=== PATIENT | male | born 1985 | race Two or more races ===

== ENCOUNTER 2025-03-14 20:19 | Inpatient (IN) | payer MEDICAID, OTHER ==
[~2025-03-14] VITALS: Ht 177.8 cm; Wt 146.8 kg
--- NOTE | 2025-03-14 21:46 | ED.PDOC ---
Musculoskeletal HPI Comments 39y M who presents to the ED for chief complaint of bilateral lower extremity edema. Pt states he has been dealing with an inguinal hernia for unknown amount of time on the R groin area. Pt states over the past 1x week, he has started to have bilateral lower extremity pain and swelling from the bilateral knee down to his extremities. Pt states he normally ambulates but states the lower extremity edema pain was so painful pt was unable to ambulate on his own and has been using wheelchair. Pt states the pain is 10/10, with no associated exacerbating or relieving factors. Pt states he has had these symptoms in the past but states they lasted for 1x week and went away. Pt otherwise has been having associated chills but denies any other symptoms. Pt otherwise denies any other symptoms at this time. Time Seen by MD: 21:15 Reviewed Notes: Medications, Allergies Information Source: Patient Mode of Arrival: Wheelchair Past Medical History PAST MEDICAL HISTORY: Denies Surgical History: Denies all surgeries Constitutional: denies: chills, diaphoresis, fatigue, fever, malaise, sweats, weakness, others EENTM: denies: blurred vision, double vision, ear bleeding, ear discharge, ear drainage, ear pain, ear ringing, eye pain, eye redness, hearing loss, mouth pain, mouth swelling, nasal discharge, nose bleeding, nose congestion, nose pain, photophobia, tearing, throat pain, throat swelling, voice changes, others Respiratory: denies: cough, hemoptysis, orthopnea, SOB at rest, shortness of breath, SOB with excertion, stridor, wheezing, others Cardiovascular: denies: chest pain, dizzy spells, diaphoresis, Dyspnea on e xertion, edema, irregular heart beat, left arm pain, lightheadedness, palpitations, PND, syncope, others Gastrointestinal: denies: abdomen distended, abdominal pain, blood streaked bowels, constipated, diarrhea, dysphagia, difficulty swallowing, hematemesis, melena, nausea, poor appetite, poor fluid intake, rectal bleeding, rectal pain, vomiting, others Genitourinary: denies: burning, dysuria, flank pain, frequency, hematuria, incontinence, penile discharge, penile sore, pain, testicle pain, testicle swelling, urgency, others Neurological: denies: dizziness, fainting, headache, left sided numbness, left sided weakness, numbness, paresthesia, pre-existing deficit, right sided numbness, right sided weakness, seizure, speech problems, tingling, tremors, weakness, others Musculoskeletal: reports: joint swelling (b/l lower extremity); denies: back pain, gout, joint pain, muscle pain, muscle stiffness, neck pain, others Integumetry: denies: bruises, change in color, change in hair/nails, dryness, laceration, lesions, lumps, rash, wounds, others Allergic/Immunocompromised: denies: Difficulty Healing, Frequent Infections, Hives, Itching, others Hematologic/Lymphatic: denies: anemia, blood clots, easy bleeding, easy bruisi ng, swollen glands, others Endocrine: denies: excessive hunger, excessive sweating, excessive thirst, exce ssive urination, flushing, intolerance to cold, intolerance to heat, unexplained weight gain, unexplained weight loss, others Psychiatric: denies: anxiety, bipolar disorder, depression, hopeless, panic disorder, schizophrenia, sleepless, suicidal, others All Other Systems: Reviewed and Negative Physical Exam General Appearance: No Apparent Distress, Normal HEENT: Normal ENT Inspection, Pharynx Normal, TMs Normal Neck: Full Range of Motion, Non-Tender, Normal, Normal Inspection Respiratory: Chest Non-Tender, Lungs Clear, No Accessory Muscle Use, No Respiratory Distress, Normal Breath Sounds Cardiovascular: No Edema, No JVD, No Murmur, No Gallop, Normal Peripheral Pulses, Regular Rate/Rhythm Breast Exam: Deferred Gastrointestinal: No Organomegaly, Non Tender, No Pulsatile Mass, Normal Bowel Sounds, Soft Genitalia: Testicle (Swelling noted to the left testicle, tender to palpation,), Deferred Pelvic: Deferred Rectal: Deferred Extremities: Leg edema (B/L lower extremity , 2+) Musculoskeletal : Apperance: Normal Neurologic: Alert, vpk teacher II-XII nml as Tested, No Motor Deficits, Normal Affect, Normal Mood, No Sensory Deficits Cerebellar Function: Normal Reflexes: Normal Skin: Dry, Warm, Other (Erythemic noted to bilateral feet extending up to ankle region. Bilateral feet are tender to palpation.) Lymphatic: No Adenopathy Was a procedure done? Was a procedure done?: No Differential Diagnosis EXT Differential Diagnosis: Cellulitis, Deep Vein Thrombosis Other Differential Diagnosis inguinal hernia, CHF,DVT, X-Ray, Labs, Meds, VS Vital Signs Date Time Temp Pulse Resp B/P (MAP) Pulse Ox O2 Delivery O2 Flow Rate FiO2 03/14/25 21:10 98.6 123 16 121/76 (91) 92 98.6 Lab Test 03/14/25 21:54 Range/Units White Blood Count 14.8 H 4.4-10.8 10^3/uL Red Blood Count 6.09 H 4.5-5.90 10^6/uL Hemoglobin 17.8 H 13.5-17.5 g/dL Hematocrit 53.5 H 41.0-53.0 % Mean Corpuscular Volume 87.8 80.0-100.0 fL Mean Corpuscular Hemoglobin 29.3 28.0-32.0 pg Mean Corpuscular Hemoglobin Concent 33.3 32.0-36.0 g/dL Red Cell Distribution Width 14.4 H 11.8-14.3 % Platelet Count 322 140-450 10^3/uL Mean Platelet Volume 8.8 6.9-10.8 fL Neutrophils (%) (Auto) 72.9 37.0-80.0 % Lymphocytes (%) (Auto) 17.1 10.0-50.0 % Monocytes (%) (Auto) 9.2 0.0-12.0 % Eosinophils (%) (Auto) 0.4 0.0-7.0 % Basophils (%) (Auto) 0.4 0.0-2.0 % Neutrophils # (Auto) 10.8 H 1.6-8.6 10 ^3/uL Lymphocytes # (Auto) 2.5 0.4-5.4 10 ^3/uL Monocytes # (Auto) 1.4 H 0-1.3 10 ^3/uL Eosinophils # (Auto) 0.1 0-0.8 10 ^3/uL Basophils # (Auto) 0.1 0-0.2 10 ^3/uL Nucleated Red Blood Cells 0.1 % Sodium Level 140 136-145 mmol/L Potassium Level 3.8 3.5-5.1 mmol/L Chloride Level 103 98-107 mmol/L Carbon Dioxide Level 27 20-31 mmol/L Anion Gap 10 5-15 Blood Urea Nitrogen 12 9-23 mg/dL Creatinine 0.98 0.700-1.30 mg/dL Glomerular Filtration Rate Calc 101 >90 mL/min BUN/Creatinine Ratio 12.2 10.0-20.0 Serum Glucose 104 74-106 mg/dL Lactic Acid Level 1.6 0.4-2.0 mmol/L Calcium Level 10.9 H 8.7-10.4 mg/dL Total Bilirubin 1.0 0.2-1.0 mg/dL Aspartate Amino Transferase (AST) 21 13-40 U/L Alanine Aminotransferase (ALT) 40 7-40 U/L Alkaline Phosphatase 104 46-116 U/L B-Type Natriuretic Peptide 0.19 0-100 pg/mL Total Protein 8.6 H 5.7-8.2 g/dL Albumin 5.1 H 3.2-4.8 g/dL X-Ray, Labs, Meds, VS Comment Imaging: X-rays and CT scans were reviewed and interpreted by this provider, imaging shows no fractures and no pathological disease. Pending radiology review. Testicular ultrasound: IMPRESSION: Normal flow identified within both testes. No evidence of torsion. Multilobulated cystic structure with some dependent heterogeneous material within the left testis is consistent with spermatocele. Partial visualization of fat within the left inguinal canal consistent with the history of inguinal hernia. Laboratory: Labs reviewed and interpreted by this provider. Elevated white cou nt Patient has prior medical visits reviewed. Med reconciliation performed Vital signs reviewed Concerns of abscess versus spermatocele noted on testicular ultrasound Patient will be admitted, recommend urology consult Patient will be started on Rocephin 2 g Patient will be given morphine four for pain control Time of 1ST Reevaluation: 00:25 Reevaluation 1ST: Unchanged Patient Education/Counseling: Diagnosis, Treatment Family Education/Counseling: No Family Present Sepsis Sepsis Reasesment Focused Exam Orders: Laboratory Tests 03/14/25 21:54: Lactic Acid Level 1.6 Departure 1 Departure Time of Disposition: 00:23 Impression: Primary Impression: Spermatocele Additional Impression: Cellulitis Qualified Codes: L03.90 - Cellulitis, unspecified Disposition: ADMITTED INPATIENT Condition: Stable Discharged With: Self Critical Care Note Critical Care Time?: No Stability Stability form required: No Heart Score Heart Score: Heart Score Response (Comments) Value History N/A 0 EKG N/A 0 Age N/A 0 Risk Factors N/A 0 Troponin N/A 0 Total 0 I personally scribed for DEO MONZON ([email or web address]) on 03/14/25 at 21:46. Electronically submitted by Thanh Rivera ([email or web address]). DEO MONZON Mar 14, 2025 21:46
--- NOTE | 2025-03-14 22:17 | DVH ---
CHEST RADIOGRAPH Indication: sob Technique: Single frontal view of the chest was obtained Comparison: None FINDINGS: Lines and Tubes: None Lungs: No focal consolidation. Pleura: No effusion. No pneumothorax. Cardiomediastinal contours: Unremarkable Bones: No acute osseous abnormality. IMPRESSION: 1. No acute cardiopulmonary disease. HS:Y
[2025-03-14 22:38] LABS: Hematocrit 53.5 % (41.0-53.0); Hemoglobin 17.8 g/dL (13.5-17.5); Mean Corpuscular Hemoglobin 29.3 pg (28.0-32.0); Mean Corpuscular Volume 87.8 fL (80.0-100.0); Nucleated Red Blood Cells % 0.1 %
[2025-03-14 22:55] LABS: Alkaline Phosphatase 104 U/L (46-116); Anion Gap 10 (5-15); BUN/Creatinine Ratio 12.2 (10.0-20.0); Bilirubin, Total 1.0 mg/dL (0.2-1.0); Blood Urea Nitrogen 12 mg/dL (9-23); Carbon Dioxide 27 mmol/L (20-31); Chloride 103 mmol/L (98-107); Glucose 104 mg/dL (74-106); Potassium 3.8 mmol/L (3.5-5.1); Sodium 140 mmol/L (136-145)
[2025-03-14 22:56] LABS: Alanine Aminotransferase 40 U/L (7-40); Albumin 5.1 g/dL (3.2-4.8); Calcium 10.9 mg/dL (8.7-10.4); Total Protein 8.6 g/dL (5.7-8.2)
--- NOTE | 2025-03-14 23:03 | DVH ---
SCROTAL ULTRASOUND REASON FOR EXAM: Left groin hernia known for 5 years. Testicular pain x3 days. Swelling. COMPARISON: None TECHNIQUE: Real-time sector scans and duplex color flow Doppler imaging of the scrotal contents was performed. FINDINGS: The right testicle measures 3.4 x 1.6 x 1.9 cm. The left testicle measures 2.4 x 1.1 x 1.7 cm. No solid testicular mass is identified. There is a 1.2 x 0.7 x 0.5 cm multilobulated, anechoic cystic st ructure within the left testis with some dependent heterogeneous material. Flow was seen within the r ight and left testicle. There is no hyperemia. No hydrocele or varicocele is identified. The epididymides are not identified. There is partial visualization of fat within the left inguinal canal consistent with the history of left inguinal hernia. IMPRESSION: Normal flow identified within both testes. No evidence of torsion. Multilobulated cystic structure with some dependent heterogeneous material within the left testis is consistent with spermatocele. Partial visualization of fat within the left inguinal canal consistent with the history of inguinal h ernia.
[2025-03-15] VITALS (7 sets, daily range): BP systolic 105–116; BP diastolic 70–73; PULSE 64–82; RESP 16–21; TEMP 98.1–98.3; O2SAT 95–96
--- NOTE | 2025-03-15 01:51 | DVHHP2 ---
History of Present Illness History of Present Illness Patient is 39 years old male with past medical history of left-sided inguinal hernia came with a complaint of bilateral leg pain and swelling. As per patient he has been having intractable bilateral lower leg pain, 10/10, crampy, constant, some relief with pain medication. Patient also reported his legs are getting swollen for last 7 days. On further inquiry patient reported he has chronic scrotal swelling for years which lately got worse. Patient denied any fever, chest pain, dysuria, shortness of breath, diarrhea, acute joint redness. Initial lab workup revealed leukocytosis with WBC 14.8, hemoglobin 17.8, testicular ultrasound revealed-Multilobulated cystic structure with some dependent heterogeneous material within the left testis is consistent with spermatocele. Partial visualization of fat within the left inguinal canal consistent with the history of inguinal hernia. CXR no acute cardiopulmonary disease. Doppler study of the lower extremity negative for DVT. Past Medical History Inguinal hernia, Past Surgical History None Past Social History Vapes, denies alcoholism/denies substance abuse, lives with family Review of Systems Review of Systems Allergy- NKDA Patient was seen today at the bedside. Cardiovascular- deny acute chest pain or shortness of breath or cough or palpitation Respiratory denies cough or short of breath or wheezing Gastrointestinal- denies any rectal bleeding, nausea or vomiting Musculoskeletal-denies acute joint swelling or tenderness or redness Neurological- denies acute dysarthria, dysphagia, change in vision Psychiatry- denies depression or SI or HI Skin- denies acute rash or purpura Allergies: Coded Allergies: NO KNOWN ALLERGIES (Unverified , 03/15/25) Medications Current Medications Medications Dose Ordered Sig/Jaymie Route Start Time Stop Time Status Last Admin Dose Admin Sodium Chloride 10 ml Q8HR IV 03/15/25 06:00 UNV Enoxaparin Sodium 40 mg DAILY SC 03/15/25 10:00 UNV Exam Vital Signs Vital Signs Date Time Temp Pulse Resp B/P (MAP) Pulse Ox O2 Delivery O2 Flow Rate FiO2 03/14/25 21:10 98.6 123 16 121/76 (91) 92 98.6 Exam General examination-awake , alert, conversant HEENT- PEERLA, no acute nasal discharge Cardiovascular- S1-S2 audible, rate and rhythm regular, no murmur Respiratory- CTAB, no wheeze or rhonchi Gastrointestinal-nontender, bowel sound+. Nondistended Musculoskeletal-no acute joint swelling or tenderness or redness Lower extremity- + bilateral leg swelling+, tenderness to touch Genitourinary-scrotal swelling, tender to touch, left inguinal swelling Neurological- cranial nerves intact, no acute dysarthria or dysphagia Psychiatry- denies depression or SI or HI Skin- no acute rash or purpura Labs/Xrays Labs Test 03/14/25 21:54 Range/Units White Blood Count 14.8 H 4.4-10.8 10^3/uL Red Blood Count 6.09 H 4.5-5.90 10^6/uL Hemoglobin 17.8 H 13.5-17.5 g/dL Hematocrit 53.5 H 41.0-53.0 % Mean Corpuscular Volume 87.8 80.0-100.0 fL Mean Corpuscular Hemoglobin 29.3 28.0-32.0 pg Mean Corpuscular Hemoglobin Concent 33.3 32.0-36.0 g/dL Red Cell Distribution Width 14.4 H 11.8-14.3 % Platelet Count 322 140-450 10^3/uL Mean Platelet Volume 8.8 6.9-10.8 fL Neutrophils (%) (Auto) 72.9 37.0-80.0 % Lymphocytes (%) (Auto) 17.1 10.0-50.0 % Monocytes (%) (Auto) 9.2 0.0-12.0 % Eosinophils (%) (Auto) 0.4 0.0-7.0 % Basophils (%) (Auto) 0.4 0.0-2.0 % Neutrophils # (Auto) 10.8 H 1.6-8.6 10 ^3/uL Lymphocytes # (Auto) 2.5 0.4-5.4 10 ^3/uL Monocytes # (Auto) 1.4 H 0-1.3 10 ^3/uL Eosinophils # (Auto) 0.1 0-0.8 10 ^3/uL Basophils # (Auto) 0.1 0-0.2 10 ^3/uL Nucleated Red Blood Cells 0.1 % Sodium Level 140 136-145 mmol/L Potassium Level 3.8 3.5-5.1 mmol/L Chloride Level 103 98-107 mmol/L Carbon Dioxide Level 27 20-31 mmol/L Anion Gap 10 5-15 Blood Urea Nitrogen 12 9-23 mg/dL Creatinine 0.98 0.700-1.30 mg/dL Glomerular Filtration Rate Calc 101 >90 mL/min BUN/Creatinine Ratio 12.2 10.0-20.0 Serum Glucose 104 74-106 mg/dL Lactic Acid Level 1.6 0.4-2.0 mmol/L Calcium Level 10.9 H 8.7-10.4 mg/dL Total Bilirubin 1.0 0.2-1.0 mg/dL Aspartate Amino Transferase (AST) 21 13-40 U/L Alanine Aminotransferase (ALT) 40 7-40 U/L Alkaline Phosphatase 104 46-116 U/L B-Type Natriuretic Peptide 0.19 0-100 pg/mL Total Protein 8.6 H 5.7-8.2 g/dL Albumin 5.1 H 3.2-4.8 g/dL SEPSIS Sepsis Screen Date sepsis recognized/suspect: Mar 14, 2025 Time Sepsis recognized/suspect: 2109 Recent Procedure: No On Antibiotic Therapy: No Respiratory Rate >20: No Heart Rate >90: Yes Temp<36 C (96.8 F) or >38.3 C: No SBP <90 or MAP <65 mmHG: No New Acute Mental Status Change: No Is the patient on CPAP, BIPAP,: No Physician Orders Testicular Ultrasound (03/14/25 21:44) Chest Xray 1 View (03/14/25 21:45) Admit (03/15/25 01:34) Code Status (03/15/25 01:34) Sodium Chloride Lock (Saline Lock Ns) (03/15/25 06:00) Enoxaparin Sodium (Lovenox) (03/15/25 10:00) Complete Blood Count (03/16/25 04:00) Comprehensive Metabolic Panel (03/16/25 04:00) Notify Md Of Changes From Base (03/15/25 01:34) Vital Signs Date Time Temp Pulse Resp B/P (MAP) Pulse Ox O2 Delivery O2 Flow Rate FiO2 03/14/25 21:10 98.6 123 16 121/76 (91) 92 98.6 Laboratory Tests Test 03/14/25 21:54 Lactic Acid Level 1.6 mmol/L (0.4-2.0) White Blood Count 14.8 10^3/uL (4.4-10.8) H Assessment/Plan Assessment/Plan Assessment and plan # intractable bilateral lower extremity pain with swelling- rule out DVT/cellulitis/peripheral neuropathy -Doppler study of the lower extremity negative for DVT -continue current conservative management #SIRS/Sepsis- -patient with leukocytosis, tachycardia -pending blood culture, urine culture -continue ceftriaxone and doxycycline as prescribed # scrotal swelling with tenderness, rule out epididymo-orchitis/spermatocele -WBC 14.8 -testicular ultrasound revealed-Multilobulated cystic structure with some dependent heterogeneous material within the left testis is consistent with spermatocele -pending urine analysis and urine culture, blood culture -continue ceftriaxone 1 g IV daily and doxycycline 100 mg IV b.i.d. # obesity -patient is counseled about the effect of obesity on health, healthy diet, physical activity, weight reduction Goals of care, Code status full code ; discussed with >15 minutes PUD prophylaxis: Pantoprazole DVT prophylaxis: Lovenox Plan discussed with Dr. Mondragon , nursing staff, Total time spent on patient evaluation, chart review, assessment and plan, discussion discussion >35 minutes Plan discussed with: Patient, Spouse, Other My Orders Orders - GENET LOAIZA Procedure Category Date Status Time Admit ADMIT 03/15/25 Transmitted 01:34 Code Status CODE 03/15/25 Transmitted 01:34 Sodium Chloride Lock PHA 03/15/25 Logged (Saline Lock Ns) 06:00 Enoxaparin Sodium PHA 03/15/25 Logged (Lovenox) 10:00 Complete Blood Count LAB 03/16/25 Verified 04:00 Comprehensive LAB 03/16/25 Verified Metabolic Panel 04:00 Notify Of Changes BENJAMÍN 03/15/25 In Process From Base 01:34 Date of Service: Mar 15, 2025 Billing Provider: ALANA MONDRAGON MD Common Visit Codes: 81788-MVGNLJN INP/OBS CARE (HIGH) Secondary Visit Codes: 20443-SXMESUJV CARE PLAN 30 MINUTES GENET LOAIZA Mar 15, 2025 01:51
[2025-03-15] MEDS: MORPHINE SULFATE 4 MG/ML SYR/VIAL IV ONE (02:15)
[2025-03-15] MEDS: ONDANSETRON HCL 4 MG/2 ML VIAL IV ONE (02:16)
[2025-03-15 02:22] LABS: Magnesium 1.9 mg/dL (1.6-2.6)
[2025-03-15 02:23] LABS: Creatine Kinase IFCC 100.0 U/L (46-171)
--- NOTE | 2025-03-15 02:47 | DVH ---
Bilateral lower extremity venous duplex Clinical History: Bilateral leg swelling, rule out DVT Comparison: None Technique: Duplex Doppler evaluation of the deep venous systems of both lower extremities from the common femora l veins to the popliteal veins including color Doppler and spectral/pulsed waveform analysis was perf ormed. Findings: RIGHT SIDE: The common femoral vein demonstrates appropriate compressibility and waveform variability. There is compressibility/patency of the great saphenous vein at the proximal thigh. The femoral vein demonstrates appropriate compressibility and waveform variability. The deep femoral vein demonstrates appropriate compressibility and waveform variability. The popliteal vein demonstrates appropriate compressibility and waveform variability. There is normal compressibility at the tibioperoneal trunk. LEFT SIDE: The common femoral vein demonstrates appropriate compressibility and waveform variability. There is compressibility/patency of the great saphenous vein at the proximal thigh. The femoral vein demonstrates appropriate compressibility and waveform variability. The deep femoral vein demonstrates appropriate compressibility and waveform variability. The popliteal vein demonstrates appropriate compressibility and waveform variability. There is normal compressibility at the tibioperoneal trunk. Impression: 1. No right or left femoropopliteal venous thrombosis.
[2025-03-15] MEDS: PANTOPRAZOLE 40 MG TAB PO ONE (03:24)
[2025-03-15] MEDS: cefTRIAXone 1GM/50ML D5W 50 ML IV ONE (03:24)
[2025-03-15] MEDS: HYDROcodone-ACET 5/325MG TAB PO ONE (05:37)
[2025-03-15] MEDS: DOXYCYCLINE 100MG/100ML 100 ML IV ONE (05:45)
[2025-03-15] MEDS: SODIUM CHLOR 0.9% PF (SALINE LOCK) 10ML VIAL/SYR IV SCH (06:00)
[2025-03-15 06:39] LABS: Opiate Scree,Urine Pos (NEGATIVE)
[2025-03-15 06:40] LABS: Amphetamine Screen, Urine Neg (NEGATIVE); Barbiturate Scree,Urine Neg (NEGATIVE); Benzodiazephine Screen, Urine Neg (NEGATIVE); Cannabinoid Screen, Urine Neg (NEGATIVE); Cocaine Screen, Urine Neg (NEGATIVE); Phencyclidine Screen, Urine Neg (NEGATIVE)
[2025-03-15 07:17] LABS: Hematocrit 49.1 % (41.0-53.0); Hemoglobin 16.3 g/dL (13.5-17.5); Mean Corpuscular Hemoglobin 29.0 pg (28.0-32.0); Mean Corpuscular Volume 87.4 fL (80.0-100.0); Nucleated Red Blood Cells % 0.1 %
[2025-03-15 07:26] LABS: Urine Budding Yeast OCCASIONAL /hpf (None Seen); Urine Protein, UAD 3+ (Negative)
[2025-03-15 07:28] LABS: Chloride 103 mmol/L (98-107); Potassium 3.6 mmol/L (3.5-5.1); Sodium 139 mmol/L (136-145)
[2025-03-15 07:29] LABS: Anion Gap 10 (5-15); Calcium 10.1 mg/dL (8.7-10.4); Carbon Dioxide 26 mmol/L (20-31)
[2025-03-15] MEDS: SODIUM CHLORIDE 0.9% 1,000 ML IV ONE (07:32)
[2025-03-15 07:34] LABS: BUN/Creatinine Ratio 13.6 (10.0-20.0); Blood Urea Nitrogen 16 mg/dL (9-23); Glucose 109 mg/dL (74-106)
[2025-03-15] MEDS: SODIUM CHLORIDE 0.9% 1,000 ML IV SCH (07:55)
[2025-03-15] MEDS: HYDROcodone-ACET 5/325MG TAB PO PRN (07:58)
--- NOTE | 2025-03-15 08:31 | DVH ---
Exam: CT CT AB PEL WO CON-NO ORAL OR IV History: ABDOMINO - SCROTAL PAIN Comparison Study: None Technique: Multidetector spiral CT of the abdomen was performed from lung bases to pubic symphysis. I maging was performed without IV contrast. Axial, coronal and sagittal multiplanar reformats were obta ined from the axial data set by the technologist. Radiation Dose : 1. Abdomen/Pelvis: CTDIvol 25.6 mGy, DLP 1952 mGy*cm. Findings: Evaluation of solid organs is limited due to lack of intravenous contrast use. Lung Bases: No acute or significant lung base finding. Normal heart size. No pleural or pericardial effusion. Liver: Hepatic steatosis. Hepatomegaly. Gallbladder and Biliary Tree: Unremarkable Spleen: Unremarkable Pancreas: The pancreas is grossly normal in appearance. Adrenal Glands: Unremarkable Kidneys: Kidneys are grossly normal without calculi or hydronephrosis. Bladder: Grossly unremarkable for degree of distention. Bowel: The stomach is grossly normal in appearance. Small bowel and colon are normal in caliber and d istribution. The appendix is not visualized; however, no secondary findings of acute appendicitis delfino ntified. Ascites: Absent Lymphadenopathy: No mesenteric, retroperitoneal or periportal lymphadenopathy. Abdominal Wall and Mesentery: Large fat containing left inguinal hernia is present. Vasculature: The visualized abdominal aorta is normal in size and caliber. Evaluation of abdominal a nd pelvic vessels is limited due to lack of intravenous contrast. Pelvic Organs: Unremarkable Musculoskeletal: No aggressive focal bony lesions, acute fractures or dislocation. IMPRESSION: Large fat containing left inguinal hernia.
--- NOTE | 2025-03-15 09:06 | DVHINCON2 ---
Date of service: Mar 15, 2025 Referring Physician hospitalist Reason for Consultation spermatocele History of Present Illness History Source: Patient, RN Notes, MD Notes Exam Limitations: No limitations HPI 39 yo male c/o abdominal pain and bilateral lower extremity edema. pt has known left inguinal hernia that he is usually able to reduce on his own but lately has been unable to. Urology consulted for possible spermatocele. Pt is voiding independently however has to manipulate the hernia to empty completely. pt does not se a physician regularly. Past Medical History Cardiac: No pertinent Hx Pulmonary: No pertinent Hx Central Nervous System: No pertinent Hx GI: No pertinent Hx Hemotology/Oncology: No pertinent Hx Hepatobiliary: No pertinent Hx Psychiatric: No pertinent Hx Musculoskeletal: No pertinent Hx Rheumotologic: No pertinent Hx Infectious Disease: No peritnent Hx ENT: No pertinent Hx Renal/: No pertinent Hx Endocrine: No pertinent Hx Dermatology: No pertinent Hx Past Surgical History: No pertinent Hx Smoker: No Hx (Negative) Alocohol: None Drugs: None Domestic Violence: Neg Review of Systems Cardiovascular: Edema Gastrointestinal: Abdominal Pain H&P Exam Vital Signs Vital Signs Date Time Temp Pulse Resp B/P (MAP) Pulse Ox O2 Delivery O2 Flow Rate FiO2 03/15/25 08:00 72 03/15/25 07:52 99.0 16 102/50 (67) 96 99.0 03/15/25 07:50 Room Air* 0 21 General Appeara: Well developed, Well nourished, Normal Appearance, Obese Pulmonary/Respiratory: Normal inspection, Normal breath sounds, Chest non- tender, Lungs clear Neuro/Mental St: Alert, Oriented Appearance: Appropriate appearance, Appropriate insight Eye contact/ Speech: Cooperative, Good eye contact, Normal speech Skin Exam: Normal inspection, Normal color, Warm/dry Labs/Xrays [facility] [id number] [place] [id number] Ph: [phone] DIAGNOSTIC IMAGING Diagnostic Imaging Report : [id number] Signed PATIENT: CRISTOFER FELICIANO ACCT: [id number] UNIT: [id number] : 1985 LOC: ER ROOM / BED: / AGE / SEX: 39 / M ADM STATUS: REG ER SERVICE 1121 ORDERING PHYSICIAN: DEO MONZON PROCEDURE(s): TESUS - TESTICULAR ULTRASOUND REASON: swelling ORDER NUMBER(s): [id number], ACCESSION NUMBER(s): [id number] SCROTAL ULTRASOUND REASON FOR EXAM: Left groin hernia known for 5 years. Testicular pain x3 days. Swelling. COMPARISON: None TECHNIQUE: Real-time sector scans and duplex color flow Doppler imaging of the scrotal contents was performed. FINDINGS: The right testicle measures 3.4 x 1.6 x 1.9 cm. The left testicle measures 2.4 x 1.1 x 1.7 cm. No solid testicular mass is identified. There is a 1.2 x 0.7 x 0.5 cm multilobulated, anechoic cystic structure within the left testis with some dependent heterogeneous material. Flow was seen within the right and left testicle. There is no hyperemia. No hydrocele or varicocele is identified. The epididymides are not identified. There is partial visualization of fat within the left inguinal canal consistent with the history of left inguinal hernia. IMPRESSION: Normal flow identified within both testes. No evidence of torsion. Multilobulated cystic structure with some dependent heterogeneous material within the left testis is consistent with spermatocele. Partial visualization of fat within the left inguinal canal consistent with the history of inguinal hernia. ATED BY: MARK FLORES MD DICTATED DATE/TIME: 03/14/252299 SIGNED BY: MARK FLORES MD SIGNED DATE/TIME: 03/14/252299 CC: [place] [id number] Ph: [phone] DIAGNOSTIC IMAGING Diagnostic Imaging Report : [id number] Signed PATIENT: CRISTOFER FELICIANO ACCT: [id number] UNIT: [id number] : 1985 LOC: OVERFLOW ROOM / BED: [facility] [place]-ER / A AGE / SEX: 39 / M ADM STATUS: ADM IN SERVICE 0553 ORDERING PHYSICIAN: GENET LOAIZA RESIDENT PROCEDURE(s): ABPL - CT AB PEL WO CON-NO ORAL OR IV REASON: ABDOMINO - SCROTAL PAIN ORDER NUMBER(s): [id number], ACCESSION NUMBER(s): [id number] Exam: CT CT AB PEL WO CON-NO ORAL OR IV History: ABDOMINO - SCROTAL PAIN Comparison Study: None Technique: Multidetector spiral CT of the abdomen was performed from lung bases to pubic symphysis. Imaging was performed without IV contrast. Axial, coronal and sagittal multiplanar reformats were obtained from the axial data set by the technologist. Radiation Dose : 1. Abdomen/Pelvis: CTDIvol 25.6 mGy, DLP 1952 mGy*cm. Findings: Evaluation of solid organs is limited due to lack of intravenous contrast use. Lung Bases: No acute or significant lung base finding. Normal heart size. No pleural or pericardial effusion. Liver: Hepatic steatosis. Hepatomegaly. Gallbladder and Biliary Tree: Unremarkable Spleen: Unremarkable Pancreas: The pancreas is grossly normal in appearance. Adrenal Glands: Unremarkable Kidneys: Kidneys are grossly normal without calculi or hydronephrosis. Bladder: Grossly unremarkable for degree of distention. Bowel: The stomach is grossly normal in appearance. Small bowel and colon are normal in caliber and distribution. The appendix is not visualized; however, no secondary findings of acute appendicitis identified. Ascites: Absent Lymphadenopathy: No mesenteric, retroperitoneal or periportal lymphadenopathy. Abdominal Wall and Mesentery: Large fat containing left inguinal hernia is present. Vasculature: The visualized abdominal aorta is normal in size and caliber. Evaluation of abdominal and pelvic vessels is limited due to lack of intravenous contrast. Pelvic Organs: Unremarkable Musculoskeletal: No aggressive focal bony lesions, acute fractures or dislocation. IMPRESSION: Large fat containing left inguinal hernia. ATED BY: RENO BUENO MD DICTATED DATE/TIME: 03/15/25828 SIGNED BY: RENO BUENO MD SIGNED DATE/TIME: 03/15/25828 CC: Labs Test 03/15/25 06:30 03/15/25 05:00 03/14/25 21:54 Range/Units White Blood Count 13.2 H 4.4-10.8 10^3/uL Red Blood Count 5.62 4.5-5.90 10^6/uL Hemoglobin 16.3 13.5-17.5 g/dL Hematocrit 49.1 41.0-53.0 % Mean Corpuscular Volume 87.4 80.0-100.0 fL Mean Corpuscular Hemoglobin 29.0 28.0-32.0 pg Mean Corpuscular Hemoglobin Concent 33.2 32.0-36.0 g/dL Red Cell Distribution Width 14.5 H 11.8-14.3 % Platelet Count 301 140-450 10^3/uL Mean Platelet Volume 8.4 6.9-10.8 fL Neutrophils (%) (Auto) 55.5 37.0-80.0 % Lymphocytes (%) (Auto) 29.8 10.0-50.0 % Monocytes (%) (Auto) 12.6 H 0.0-12.0 % Eosinophils (%) (Auto) 1.3 0.0-7.0 % Basophils (%) (Auto) 0.8 0.0-2.0 % Neutrophils # (Auto) 7.3 1.6-8.6 10 ^3/uL Lymphocytes # (Auto) 3.9 0.4-5.4 10 ^3/uL Monocytes # (Auto) 1.7 H 0-1.3 10 ^3/uL Eosinophils # (Auto) 0.2 0-0.8 10 ^3/uL Basophils # (Auto) 0.1 0-0.2 10 ^3/uL Nucleated Red Blood Cells 0.1 % Sodium Level 139 136-145 mmol/L Potassium Level 3.6 3.5-5.1 mmol/L Chloride Level 103 98-107 mmol/L Carbon Dioxide Level 26 20-31 mmol/L Anion Gap 10 5-15 Blood Urea Nitrogen 16 9-23 mg/dL Creatinine 1.18 0.700-1.30 mg/dL Glomerular Filtration Rate Calc 81 >90 mL/min BUN/Creatinine Ratio 13.6 10.0-20.0 Serum Glucose 109 H 74-106 mg/dL Hemoglobin A1c 6.1 H <5.7 % A1C Calcium Level 10.1 8.7-10.4 mg/dL Vitamin B12 Level 498 211-911 pg/mL Vitamin D 25-Hydroxy 19.6 L 30.0-100 ng/mL Folic Acid 15.91 >5.38 ng/mL HIV (1&2) Antibody Negative Negative Urine Color Yellow Yellow Urine Clarity Clear Clear Urine pH 6.5 5.0-9.0 Urine Specific [place] 1.025 1.001-1.035 Urine Protein 3+ H Negative Urine Ketones Negative Negative Urine Blood Negative Negative /uL Urine Nitrite Negative Negative Urine Bilirubin Negative Negative Urine Urobilinogen 3 H Negative mg/dL Urine Leukocyte Esterase Negative Negative /uL Urine RBC <1 0 - 3 /hpf Urine Microscopic WBC 1 0-3 /HPF Urine Squamous Epithelial Cells Few <5 /hpf Urine Bacteria None seen None Seen /hpf Urine Granular Casts Few 0 /lpf Urine Mucus Few None Seen Urine Yeast (Budding) Occasional None Seen /hpf Urine Glucose Normal Normal mg/dL Urine Opiates Screen Pos NEGATIVE Urine Fentanyl Screen Neg NEGATIVE Urine Barbiturates Screen Neg NEGATIVE Urine Phencyclidine Screen Neg NEGATIVE Urine Amphetamines Screen Neg NEGATIVE Urine Benzodiazepines Screen Neg NEGATIVE Urine Cocaine Screen Neg NEGATIVE Urine Cannabinoids Screen Neg NEGATIVE Lactic Acid Level 1.6 0.4-2.0 mmol/L Magnesium Level 1.9 1.6-2.6 mg/dL Total Bilirubin 1.0 0.2-1.0 mg/dL Aspartate Amino Transferase (AST) 21 13-40 U/L Alanine Aminotransferase (ALT) 40 7-40 U/L Alkaline Phosphatase 104 46-116 U/L Creatine Kinase 100 46-171 U/L B-Type Natriuretic Peptide 0.19 0-100 pg/mL Total Protein 8.6 H 5.7-8.2 g/dL Albumin 5.1 H 3.2-4.8 g/dL Thyroid Stimulating Hormone (TSH) 0.98 0.55-4.78 uIU/mL Assessment/Plan Problem List: (1) Inguinal hernia recurrent unilateral (2) Spermatocele (3) Cellulitis Plan consult general surgery for hernia evaluation no urologic intervention indicated at this time. Plan discussed with: Patient, Other ROBYN OVIEDO NP Mar 15, 2025 09:06
--- NOTE | 2025-03-15 09:48 | DVHPNRES ---
Progress Note Date Seen: Mar 15, 2025 Resident Creating Document: ELAINA MATA RESIDENT Has the PT tested + for MRSA If YES, has PT been informed?: No Medical Necessity Reason Pt with a Central, PICC or Fol: No Subjective Review of Systems Mr. Bautista is a 39 years old male with past medical history of left-sided inguinal hernia, Visit the ED with a complaint of 1 week of bilateral lower leg pain, redness and swelling. As per patient he has been having intractable bilateral lower leg pain, 10/10, crampy, constant, some relief with pain medication. Patient also reported his legs are getting swollen over the last week. On further inquiry patient reported he has chronic scrotal swelling for about 5 years patient was lately got worse, with pressure sensation. Also, he report left knee pain with passive movements and difficulty to deambulate or bear weight. Patient denied scrotal pain, penile discharge, constipation, abdominal pain, fever, chest pain, dysuria, shortness of breath, diarrhea. Initial lab workup revealed leukocytosis with WBC 14.8, hemoglobin 17.8 ; Testicular ultrasound revealed-Multilobulated cystic structure with some dependent heterogeneous material within the left testis is consistent with spermatocele. Partial visualization of fat within the left inguinal canal consistent with the history of inguinal hernia. CXR no acute cardiopulmonary disease. Doppler study of the lower extremity negative for DVT. Today, the patient complains of excruciate pain in bilateral lower legs, scrotal pressure, knee pain. Denies fever, chills, abdominal pain or other. Vital signs within normal limits, labs report 14.8. Urology and surgery consult were placed today, blood cultures were ordered, patient was started on Ceftriaxone 1g and doxycycline. We will follow up with this patient progress. ROS: Allergy- NKDA Patient was seen today at the bedside. patient in distress. Cardiovascular- deny acute chest pain or shortness of breath or cough or palpitation Respiratory denies cough or short of breath or wheezing Gastrointestinal- denies any rectal bleeding, nausea Musculoskeletal- reports tenderness, swelling and redness in bilateral lower legs Neurological- denies acute dysarthria, dysphagia, change in vision Psychiatry- denies depression or SI or HI Skin- bilateral leg redness and swelling. Objective vital signs Vital Sign Date Time Temp Pulse Resp B/P (MAP) Pulse Ox O2 Delivery O2 Flow Rate FiO2 03/15/25 08:00 72 03/15/25 07:52 99.0 16 102/50 (67) 96 99.0 03/15/25 07:50 Room Air* 0 21 medications Current Medications Medications Dose Ordered Sig/Jaymie Route Start Time Stop Time Status Last Admin Dose Admin Sodium Chloride 10 ml Q8HR IV 03/15/25 06:00 03/15/25 06:00 10 ML Enoxaparin Sodium 40 mg DAILY SC 03/15/25 10:00 Pantoprazole Sodium 40 mg DAILY@0600 PO 03/16/25 06:00 Ceftriaxone Sodium 50 ml @ 100 mls/hr DAILY@2100 IV 03/15/25 21:00 Acetaminophen/ Hydrocodone Bitart 1 tab Q6HPRN PRN PO 03/15/25 05:15 03/15/25 07:58 1 TAB Doxycycline Hyclate 100 ml @ 50 mls/hr Q12H IV 03/15/25 18:00 Sodium Chloride 1,000 ml @ 150 mls/hr Q6H40M IV 03/15/25 06:00 03/15/25 07:55 150 MLS/HR Examination General examination-awake , alert, conversant HEENT- PEERLA, no acute nasal discharge Cardiovascular- S1-S2 audible, rate and rhythm regular, no murmur Respiratory- CTAB, no wheeze or rhonchi Gastrointestinal-nontender, bowel sound+. Nondistended Musculoskeletal-Left knee joint swelling, tenderness and warmth, drawer test (+) Lower extremity- + bilateral leg swelling+, tenderness to touch, redness to the lemus and warmth. Genitourinary-scrotal swelling, tender to touch, left inguinal swelling. Neurological- cranial nerves intact, no acute dysarthria or dysphagia Psychiatry- denies depression or SI or HI Skin- no acute rash or purpura. laboratory and microbiology Laboratory Tests 03/15/25 06:30 Test 03/15/25 06:30 Range/Units Serum Glucose 109 H 74-106 mg/dL Problem List/Assessment/Plan Problem List/Assessment/Plan # Intractable bilateral lower extremity pain with swelling rule out DVT/cellulitis/peripheral neuropathy -#R/O Nefrotic/nefritic syndrome. -Doppler study of the lower extremity negative for DVT -continue current conservative management. -Urine protein. #SIRS/Sepsis -patient with leukocytosis, tachycardia -pending blood culture, urine culture -continue ceftriaxone and doxycycline as prescribed -pending urinalysis #Non- reducible left inguinal hernia -Surgery consult. #R/O Left reactive Arthritis/ Knee Ligament or Meniscus tear. -Left knee xray # Scrotal swelling with tenderness, rule out epididymo-orchitis/spermatocele -WBC 14.8 -testicular ultrasound revealed-Multilobulated cystic structure with some dependent heterogeneous material within the left testis is consistent with spermatocele -pending urine analysis and urine culture, blood culture -continue ceftriaxone 1 g IV daily -Continue doxiciclyn # Obesity -patient is counseled about the effect of obesity on health, healthy diet, physical activity, weight reduction PUD prophylaxis: Pantoprazole DVT prophylaxis: Lovenox Goals of care, plan discussed with Dr. Reyes. Code status: Full code PCP: not established yet. Total time spent on patient evaluation, chart review, assessment and plan, discussion discussion >35 minutes Plan discussed with: Patient, patients agrees with the plan. Plan discussed with: Patient Dietary Evaluation Review Recommendations by RD: Decrease Calorie Intake Date of Service: Mar 15, 2025 Billing Provider: RENETTA LAUREN MD Common Visit Codes: [id number] INP/OBS CARE(HIGH) ELAINA MATA RESIDENT Mar 15, 2025 09:48 RENETTA LAUREN MD Mar 28, 2025 00:58
[2025-03-15] MEDS: ENOXAPARIN SOD 40 MG/0.4 ML SYRINGE SC SCH (10:20)
[2025-03-15] MEDS: IOHEXOL 300 MG/ML 100ML BOTTLE IJ ONE (10:54)
--- NOTE | 2025-03-15 11:49 | DVH ---
CT PELVIS WITH CONTRAST [id number] HISTORY: R/O ABSCESS OF SCROTUM COMPARISON: 03/15/25 PROCEDURE: Helical CT images were obtained of the pelvis with intravenous contrast. Sagittal and co reyna reconstructions are provided. ORAL CONTRAST: None. ADDITIONAL IMAGES: None TOTAL RADIATION DOSE: CTDIvol: 35.41 mGy DLP: 1690.07 mGy x cm FINDINGS: BOWEL: In the appendix is normal. VISUALIZED KIDNEYS AND URETER: Normal. BLADDER: Normal. REPRODUCTIVE ORGANS: Normal. LYMPH NODES: No lymphadenopathy. PERITONEUM / RETROPERITONEUM: Normal. VESSELS:Normal ABDOMINAL WALL: Similar large fat containing left inguinal hernia that descends into the scrotum . BONES: Normal. IMPRESSION: Similar large fat containing left inguinal hernia that descends into the scrotum . No focal fluid col lection to suggest for abscess.
--- NOTE | 2025-03-15 12:15 | DVHINCON2 ---
Date of service: Mar 15, 2025 Allergies: Coded Allergies: NO KNOWN ALLERGIES (Unverified , 03/15/25) Current Medications Current Medications Medications (Trade) Dose Ordered Sig/Jaymie Route PRN Reason Start Time Stop Time Status Last Admin Sodium Chloride (Saline Lock Ns) 10 ml Q8HR IV 03/15/25 06:00 03/15/25 06:00 Enoxaparin Sodium (Lovenox) 40 mg DAILY SC 03/15/25 10:00 03/15/25 10:20 Pantoprazole Sodium (Protonix Tablet) 40 mg DAILY@0600 PO 03/16/25 06:00 Ceftriaxone Sodium 50 ml @ 100 mls/hr DAILY@2100 IV 03/15/25 21:00 Acetaminophen/ Hydrocodone Bitart ([place] 5/325MG Tab) 1 tab Q6HPRN PRN PO SEVERE PAIN (7-10 PAIN SCALE) 03/15/25 05:15 03/15/25 07:58 Doxycycline Hyclate 100 ml @ 50 mls/hr Q12H IV 03/15/25 18:00 Sodium Chloride 1,000 ml @ 150 mls/hr Q6H40M IV 03/15/25 06:00 03/15/25 07:55 Vital Signs Vital Signs Date Time Temp Pulse Resp B/P (MAP) Pulse Ox O2 Delivery O2 Flow Rate FiO2 03/15/25 10:00 82 21 95 Room Air* 0 21 03/15/25 10:00 98.1 110/64 (79) 98.1 Labs/Diagnostic Data Labs Test 03/15/25 06:30 03/15/25 05:00 03/14/25 21:54 Range/Units White Blood Count 13.2 H 4.4-10.8 10^3/uL Red Blood Count 5.62 4.5-5.90 10^6/uL Hemoglobin 16.3 13.5-17.5 g/dL Hematocrit 49.1 41.0-53.0 % Mean Corpuscular Volume 87.4 80.0-100.0 fL Mean Corpuscular Hemoglobin 29.0 28.0-32.0 pg Mean Corpuscular Hemoglobin Concent 33.2 32.0-36.0 g/dL Red Cell Distribution Width 14.5 H 11.8-14.3 % Platelet Count 301 140-450 10^3/uL Mean Platelet Volume 8.4 6.9-10.8 fL Neutrophils (%) (Auto) 55.5 37.0-80.0 % Lymphocytes (%) (Auto) 29.8 10.0-50.0 % Monocytes (%) (Auto) 12.6 H 0.0-12.0 % Eosinophils (%) (Auto) 1.3 0.0-7.0 % Basophils (%) (Auto) 0.8 0.0-2.0 % Neutrophils # (Auto) 7.3 1.6-8.6 10 ^3/uL Lymphocytes # (Auto) 3.9 0.4-5.4 10 ^3/uL Monocytes # (Auto) 1.7 H 0-1.3 10 ^3/uL Eosinophils # (Auto) 0.2 0-0.8 10 ^3/uL Basophils # (Auto) 0.1 0-0.2 10 ^3/uL Nucleated Red Blood Cells 0.1 % Sodium Level 139 136-145 mmol/L Potassium Level 3.6 3.5-5.1 mmol/L Chloride Level 103 98-107 mmol/L Carbon Dioxide Level 26 20-31 mmol/L Anion Gap 10 5-15 Blood Urea Nitrogen 16 9-23 mg/dL Creatinine 1.18 0.700-1.30 mg/dL Glomerular Filtration Rate Calc 81 >90 mL/min BUN/Creatinine Ratio 13.6 10.0-20.0 Serum Glucose 109 H 74-106 mg/dL Hemoglobin A1c 6.1 H <5.7 % A1C Calcium Level 10.1 8.7-10.4 mg/dL Vitamin B12 Level 498 211-911 pg/mL Vitamin D 25-Hydroxy 19.6 L 30.0-100 ng/mL Folic Acid 15.91 >5.38 ng/mL HIV (1&2) Antibody Negative Negative Urine Color Yellow Yellow Urine Clarity Clear Clear Urine pH 6.5 5.0-9.0 Urine Specific [place] 1.025 1.001-1.035 Urine Protein 3+ H Negative Urine Ketones Negative Negative Urine Blood Negative Negative /uL Urine Nitrite Negative Negative Urine Bilirubin Negative Negative Urine Urobilinogen 3 H Negative mg/dL Urine Leukocyte Esterase Negative Negative /uL Urine RBC <1 0 - 3 /hpf Urine Microscopic WBC 1 0-3 /HPF Urine Squamous Epithelial Cells Few <5 /hpf Urine Bacteria None seen None Seen /hpf Urine Granular Casts Few 0 /lpf Urine Mucus Few None Seen Urine Yeast (Budding) Occasional None Seen /hpf Urine Glucose Normal Normal mg/dL Urine Opiates Screen Pos NEGATIVE Urine Fentanyl Screen Neg NEGATIVE Urine Barbiturates Screen Neg NEGATIVE Urine Phencyclidine Screen Neg NEGATIVE Urine Amphetamines Screen Neg NEGATIVE Urine Benzodiazepines Screen Neg NEGATIVE Urine Cocaine Screen Neg NEGATIVE Urine Cannabinoids Screen Neg NEGATIVE Lactic Acid Level 1.6 0.4-2.0 mmol/L Magnesium Level 1.9 1.6-2.6 mg/dL Total Bilirubin 1.0 0.2-1.0 mg/dL Aspartate Amino Transferase (AST) 21 13-40 U/L Alanine Aminotransferase (ALT) 40 7-40 U/L Alkaline Phosphatase 104 46-116 U/L Creatine Kinase 100 46-171 U/L B-Type Natriuretic Peptide 0.19 0-100 pg/mL Total Protein 8.6 H 5.7-8.2 g/dL Albumin 5.1 H 3.2-4.8 g/dL Thyroid Stimulating Hormone (TSH) 0.98 0.55-4.78 uIU/mL Assessment 39 year old morbidly obese male,has a left inguino-scrotal hernia which on ct scan contains only omental fat without any bowel. he has had the hernia for "about 10 years" the hernia is not acutely incarcerated and does not need to be repaired emergently, please have patient come to my office after the resolution of his other problems to discuss elective repair Plan discussed with: Patient KENNY FIERRO MD Mar 15, 2025 12:15
[2025-03-15 13:19] LABS: Protein, Urine 727.3 mg/dL (1-14)
[2025-03-15] MEDS: KETOROLAC TROMETH 30 MG/ML 1ML VIAL IV PRN (13:21)
[2025-03-15] MEDS: FUROSEMIDE 40 MG/4 ML VIAL IV ONE (13:22)
--- NOTE | 2025-03-15 13:56 | DVH ---
CLINICAL INDICATION: Left knee pain TECHNIQUE: 2 radiographic views of the left knee were obtained. Comparison: None FINDINGS/IMPRESSION: There is no evidence of acute fracture or dislocation. The visualized joint space is well maintained. The alignment is anatomical. There is no radiopaque foreign body.
[2025-03-15] MEDS: DOXYCYCLINE 100MG/100ML 100 ML IV SCH (18:03)
[2025-03-15] MEDS: cefTRIAXone 1GM/50ML D5W 50 ML IV SCH (21:14)
[2025-03-16 05:00] VITALS: BP 113/74; PULSE 89; RESP 20; TEMP 98.3; O2SAT 94
[2025-03-16] MEDS: PANTOPRAZOLE 40 MG TAB PO SCH (05:33)
[2025-03-16 07:06] LABS: Hematocrit 45.9 % (41.0-53.0); Hemoglobin 15.3 g/dL (13.5-17.5); Mean Corpuscular Hemoglobin 29.3 pg (28.0-32.0); Mean Corpuscular Volume 87.9 fL (80.0-100.0); Nucleated Red Blood Cells % 0.0 %
[2025-03-16 07:21] LABS: Alanine Aminotransferase 33 U/L (7-40); Albumin 4.1 g/dL (3.2-4.8); Alkaline Phosphatase 84 U/L (46-116); Anion Gap 8 (5-15); BUN/Creatinine Ratio 17.1 (10.0-20.0); Blood Urea Nitrogen 18 mg/dL (9-23); Calcium 9.9 mg/dL (8.7-10.4); Carbon Dioxide 26 mmol/L (20-31); Chloride 105 mmol/L (98-107); Potassium 3.8 mmol/L (3.5-5.1); Sodium 139 mmol/L (136-145); Total Protein 6.9 g/dL (5.7-8.2)
[2025-03-16 07:22] LABS: Bilirubin, Total 0.5 mg/dL (0.2-1.0)
[2025-03-16 07:24] LABS: Glucose 126 mg/dL (74-106)
[2025-03-16 08:07] LABS: Anti-Centromere B Antibody <0.2 AI (0.0-0.9); Anti-Jo-1 Antibody <0.2 AI (0.0-0.9); Anti-dsDNA Antibody <1 IU/mL (0-9); Antichromatin Antibody <0.2 AI (0.0-0.9); Antiscleroderma-70 Antibody <0.2 AI (0.0-0.9); Sjogren's Anti-SS-A Antibody <0.2 AI (0.0-0.9); Sjogren's Anti-SS-B Antibody <0.2 AI (0.0-0.9)
[2025-03-16 08:51] VITALS: BP 111/65; PULSE 72; RESP 16; TEMP 97.8; O2SAT 88; O2SAT 93
[2025-03-16 12:58] VITALS: BP 116/72; PULSE 85; RESP 16; TEMP 98; O2SAT 90
--- NOTE | 2025-03-16 14:54 | DVH ---
INDICATION: Nephrotic syndrome TECHNIQUE: Multiple real-time sonographic images of the kidneys and bladder were obtained. COMPARISON: 03/15/25 FINDINGS: The right kidney measures 13 cm in length, which is normal in size. There is normal echogen icity of the right kidney. No hydronephrosis. The left kidney measures 13 cm in length, which is normal in size. There is normal echogenicity of th e left kidney. No hydronephrosis. No large intraluminal masses are seen in the bladder. Prior to voiding the bladder volume measures vo lume 185 cc. IMPRESSION: Mild enlargement of the bilateral kidneys. No hydronephrosis.
[2025-03-16 16:42] VITALS: BP 143/81; PULSE 81; RESP 16; TEMP 97.7; O2SAT 94
[2025-03-16 17:10] LABS: INR 1.01 (0.9-1.15); Prothrombin Time 10.7 sec (9.3-11.8)
--- NOTE | 2025-03-16 17:41 | DVHPNRES ---
Progress Note Date Seen: Mar 16, 2025 Resident Creating Document: ELAINA MATA RESIDENT Has the PT tested + for MRSA If YES, has PT been informed?: No Medical Necessity Reason Pt with a Central, PICC or Fol: No Subjective Review of Systems PHI: Mr. Bautista is a 39 years old male with past medical history of left-sided inguinal hernia, Visit the ED with a complaint of 1 week of bilateral lower leg pain, redness and swelling. As per patient he has been having intractable bilateral lower leg pain, 10/10, crampy, constant, some relief with pain medication. Patient also reported his legs are getting swollen over the last week. On further inquiry patient reported he has chronic scrotal swelling for about 5 years patient was lately got worse, with pressure sensation. Also, he report left knee pain with passive movements and difficulty to deambulate or bear weight. Patient denied scrotal pain, penile discharge, constipation, abdominal pain, fever, chest pain, dysuria, shortness of breath, diarrhea. Initial lab workup revealed leukocytosis with WBC 14.8, hemoglobin 17.8 ; Testicular ultrasound revealed-Multilobulated cystic structure with some dependent heterogeneous material within the left testis is consistent with spermatocele. Partial visualization of fat within the left inguinal canal consistent with the history of inguinal hernia. CXR no acute cardiopulmonary disease. Doppler study of the lower extremity negative for DVT. Admission course: Today, the patient complains of pain in bilateral lower legs, scrotal pressure, knee pain. Denies fever, chills, abdominal pain or other. Vital signs within normal limits, labs report .8.7 WBC Urology and surgery consulted. Surgery recommended elective hernia repair as outpatient. Urology said no urologic intervention indicated at this time. The patient was started on Ceftriaxone 1g and doxycycline. Protein in urine is more than 3.5g, nephrology will be consulted for nephrotic syndrome. We will follow up with this patient progress. ROS: Allergy- NKDA Patient was seen today at the bedside. patient in distress. Cardiovascular- deny acute chest pain or shortness of breath or cough or palpitation Respiratory denies cough or short of breath or wheezing Gastrointestinal- denies any rectal bleeding, nausea Musculoskeletal- reports tenderness, swelling and redness in bilateral lower legs Neurological- denies acute dysarthria, dysphagia, change in vision Psychiatry- denies depression or SI or HI Skin- bilateral leg redness and swelling. Objective vital signs Vital Sign Date Time Temp Pulse Resp B/P (MAP) Pulse Ox O2 Delivery O2 Flow Rate FiO2 03/16/25 16:42 97.7 81 16 143/81 (101) 94 97.7 03/15/25 20:00 Room Air* 0 21 Total Intake and Output 03/15/25 03/15/25 03/16/25 15:00 23:00 07:00 Intake Total 1850 ml 50 ml 1450 ml Balance 1850 ml 50 ml 1450 ml medications Current Medications Medications Dose Ordered Sig/Jaymie Route Start Time Stop Time Status Last Admin Dose Admin Enoxaparin Sodium 40 mg DAILY SC 03/15/25 10:00 03/16/25 09:48 40 MG Pantoprazole Sodium 40 mg DAILY@0600 PO 03/16/25 06:00 03/16/25 05:33 40 MG Ceftriaxone Sodium 50 ml @ 100 mls/hr DAILY@2100 IV 03/15/25 21:00 03/15/25 21:14 100 MLS/HR Acetaminophen/ Hydrocodone Bitart 1 tab Q6HPRN PRN PO 03/15/25 05:15 03/16/25 05:34 1 TAB Doxycycline Hyclate 100 ml @ 50 mls/hr Q12H IV 03/15/25 18:00 03/16/25 05:33 50 MLS/HR Ketorolac Tromethamine 15 mg Q6HPRN PRN IV 03/15/25 12:30 03/20/25 12:29 03/16/25 12:04 15 MG Furosemide 40 mg DAILY IV 03/17/25 10:00 Examination General examination-awake , alert, conversant HEENT- PEERLA, no acute nasal discharge Cardiovascular- S1-S2 audible, rate and rhythm regular, no murmur Respiratory- CTAB, no wheeze or rhonchi Gastrointestinal-nontender, bowel sound+. Nondistended Musculoskeletal-Left knee joint swelling, tenderness and warmth, drawer test (+) Lower extremity- + bilateral leg swelling+, tenderness to touch, redness to the lemus and warmth. Genitourinary-scrotal swelling, tender to touch, left inguinal swelling. Neurological- cranial nerves intact, no acute dysarthria or dysphagia Psychiatry- denies depression or SI or HI Skin- no acute rash or purpura. laboratory and microbiology Laboratory Tests 03/16/25 06:04 Test 03/16/25 06:04 Range/Units Serum Glucose 126 H 74-106 mg/dL Microbiology Date/Time Source Procedure Growth Status 03/15/25 06:30 Blood Blood Culture - Preliminary NO GROWTH AFTER 24 HOURS OF INCUBATION. Resulted 03/15/25 05:00 Voided Urine Urine Culture - Preliminary Resulted Problem List/Assessment/Plan Problem List/Assessment/Plan # Intractable bilateral lower extremity pain with swelling rule out DVT/cellulitis/peripheral neuropathy -#R/O Nephrotic/nephritic syndrome. -Doppler study of the lower extremity negative for DVT -continue current conservative management. -Urine protein. #SIRS/Sepsis without AOD -patient with leukocytosis, tachycardia -pending blood culture, urine culture -continue ceftriaxone and doxycycline as prescribed -pending urinalysis #Non- reducible left inguinal hernia -Surgery consult. # Nephrotic Syndrome Nephrology consult. #Rule out meniscus tear Othopedic consult. #R/O Left reactive Arthritis/ Knee Ligament or Meniscus tear. -Left knee xray # Scrotal swelling with tenderness, rule out epididymo-orchitis/spermatocele -WBC 14.8 -testicular ultrasound revealed-Multilobulated cystic structure with some dependent heterogeneous material within the left testis is consistent with spermatocele -pending urine analysis and urine culture, blood culture -continue ceftriaxone 1 g IV daily -Continue doxiciclyn # Obesity -patient is counseled about the effect of obesity on health, healthy diet, physical activity, weight reduction PUD prophylaxis: Pantoprazole DVT prophylaxis: Lovenox Goals of care, plan discussed with Dr. Reyes. Code status: Full code PCP: not established yet. Total time spent on patient evaluation, chart review, assessment and plan, discussion discussion >35 minutes Plan discussed with: Patient, patients agrees with the plan. Plan discussed with: Patient My Orders My Orders Orders - ELAINA MATA RESIDENT Procedure Category Date Status Time Regular Diet DIET 03/15/25 Transmitted Dinner Furosemide Injection PHA 03/17/25 In Process (Lasix Injection) 10:00 Communication Order ORDERS 03/16/25 Transmitted 13:39 Complete Blood Count LAB 03/17/25 Verified 04:00 Comprehensive LAB 03/17/25 Verified Metabolic Panel 04:00 Kidney US 03/16/25 Resulted 13:39 * Orthopedic Consult CONS 03/16/25 Transmitted 16:17 *[facility] CONS 03/16/25 Transmitted -[place] 16:20 Dietary Evaluation Review Recommendations by RD: Decrease Calorie Intake Date of Service: Mar 16, 2025 Billing Provider: RENETTA LAUREN MD Common Visit Codes: 24063-[id number] INP/OBS CARE(HIGH) ADOLFOELAINA Galdamez RESIDENT Mar 16, 2025 17:41 RENETTA LAUREN MD Mar 28, 2025 01:09
--- NOTE | 2025-03-16 18:39 | DVH ---
CT RIGHT KNEE HISTORY: effusion COMPARISON: None TECHNIQUE: Multiple axial CT images of the right knee were obtained without intra-articular contrast. Coronal and sagittal bone and soft tissue reformations were also obtained. One or more of the [facility] radiation dose reduction techniques were used for this examination: automated exposure control, adjustment of the mA and/or kV according to patient size, use of iterative reconstruction technique. FINDINGS: Trace right knee joint effusion. No acute fracture dislocation. No focal abscess identified. Mild-to- moderate osteoarthrosis of the right knee. IMPRESSION: 1. Trace right knee effusion. 2. [id number] osteoarthrosis of the right knee.
--- NOTE | 2025-03-16 18:43 | DVH ---
EXAM: CT CT L KNEE WO CONTRAST HISTORY: effusion COMPARISON: None TECHNIQUE: Noncontrast axial CT images of the left knee were performed. Sagittal and coronal reformat delvin images were obtained. This CT exam was performed using one or more of the following dose reductio n techniques: Automated exposure control, adjustment of the mA and/or kv according to patient size, o r the use of iterative reconstruction techniques. Radiation Dose Information: CTDI volume is 8 mGy. Dose-length product is 245.3 mGy*cm FINDINGS: No acute fracture is identified about left knee. Mild osteoarthrosis of the left knee. Trac e left knee joint effusion. IMPRESSION: 1. Mild osteoarthrosis of the left knee. 2. Trace left knee joint effusion.
[2025-03-16 20:00] VITALS: PULSE 82; RESP 19; O2SAT 97
[2025-03-16 21:00] VITALS: BP 136/73; PULSE 82; RESP 19; TEMP 98.2; O2SAT 97
[2025-03-16 22:18] LABS: Protein, Urine 165.1 mg/dL (1-14)
[2025-03-17 01:00] VITALS: BP 141/82; PULSE 84; RESP 18; TEMP 98.8; O2SAT 96
[2025-03-17 05:00] VITALS: BP 127/62; PULSE 82; RESP 18; TEMP 98.9; O2SAT 96
[2025-03-17 07:47] LABS: Hematocrit 45.0 % (41.0-53.0); Hemoglobin 15.0 g/dL (13.5-17.5); Mean Corpuscular Hemoglobin 29.3 pg (28.0-32.0); Mean Corpuscular Volume 87.7 fL (80.0-100.0); Nucleated Red Blood Cells % 0.1 %
[2025-03-17 08:20] LABS: Alanine Aminotransferase 33 U/L (7-40); Albumin 4.1 g/dL (3.2-4.8); Alkaline Phosphatase 87 U/L (46-116); Anion Gap 9 (5-15); BUN/Creatinine Ratio 15.7 (10.0-20.0); Blood Urea Nitrogen 13 mg/dL (9-23); Calcium 9.9 mg/dL (8.7-10.4); Carbon Dioxide 23 mmol/L (20-31); Chloride 107 mmol/L (98-107); Potassium 3.8 mmol/L (3.5-5.1); Sodium 139 mmol/L (136-145); Total Protein 7.0 g/dL (5.7-8.2)
[2025-03-17 08:24] LABS: Bilirubin, Total 0.3 mg/dL (0.2-1.0); Glucose 116 mg/dL (74-106)
[2025-03-17 08:31] VITALS: BP 129/79; PULSE 75; RESP 18; TEMP 98.4; O2SAT 93
[2025-03-17] MEDS: FUROSEMIDE 40 MG/4 ML VIAL IV SCH (10:12)
--- NOTE | 2025-03-17 11:47 | DVHINCON2 ---
Date of service: Mar 17, 2025 Referring Physician hospitalist Reason for Consultation proteinuria History of Present Illness 40-year-old morbidly obese male has not received medical attention over the last 10 years presents to the hospital complaining of sudden onset of swelling of the bilateral feet. He was admitted for this reason he denies any past medical history to me however medical records indicate he has a history of an inguinal hernia. His hospital course was notable for evaluation of inguinal hernia was diagnosed with scrotal inguinal hernia without incarceration and surgery deemed not needed for operative procedure at this time. Nephrology was consulted due t o sudden-onset swelling and protein in the urine to evaluate for nephrotic disease. Patient denies any family history of kidney disease, or autoimmune disease. Allergies: Coded Allergies: NO KNOWN ALLERGIES (Unverified , 03/15/25) Current Medications Current Medications Medications (Trade) Dose Ordered Sig/Jaymie Route PRN Reason Start Time Stop Time Status Last Admin Furosemide (Lasix Injection) 40 mg DAILY IV 03/17/25 10:00 03/17/25 10:12 Family History: Diabetes mellitus G8 MOTHER Review of Systems Bilateral leg swelling H&P Exam Vital Signs/I&O Vital Sign Date Time Temp Pulse Resp B/P (MAP) Pulse Ox O2 Delivery O2 Flow Rate FiO2 03/17/25 10:12 129/79 03/17/25 08:31 98.4 75 18 93 98.4 03/16/25 20:00 Room Air* 0 21 Intake and Output 03/16/25 03/17/25 19:00 07:00 Intake Total 700 ml 550 ml Output Total 1400 ml Balance 700 ml -850 ml Intake Oral 600 ml 500 ml IV Total 100 ml 50 ml Output Urine Total 1400 ml # Voids 2 # Bowel Movements 1 Physical Exam Morbid obese young male not in overt distress Lying comfortably Abdomen is soft Trace ankle edema nonpitting Regular rate and rhythm Labs/Diagnostic Data Labs/Diagnostic Data Laboratory Tests Test 03/17/25 06:35 03/16/25 22:00 03/16/25 16:45 03/16/25 06:04 Range/Units White Blood Count 10.4 8.7 # 4.4-10.8 10^3/uL Red Blood Count 5.13 5.23 4.5-5.90 10^6/uL Hemoglobin 15.0 15.3 13.5-17.5 g/dL Hematocrit 45.0 45.9 41.0-53.0 % Mean Corpuscular Volume 87.7 87.9 80.0-100.0 fL Mean Corpuscular Hemoglobin 29.3 29.3 28.0-32.0 pg Mean Corpuscular Hemoglobin Concent 33.4 33.3 32.0-36.0 g/dL Red Cell Distribution Width 14.1 13.9 11.8-14.3 % Platelet Count 292 277 140-450 10^3/uL Mean Platelet Volume 8.7 8.3 6.9-10.8 fL Neutrophils (%) (Auto) 60.7 56.9 37.0-80.0 % Lymphocytes (%) (Auto) 26.1 30.0 10.0-50.0 % Monocytes (%) (Auto) 9.5 9.8 0.0-12.0 % Eosinophils (%) (Auto) 3.1 2.8 0.0-7.0 % Basophils (%) (Auto) 0.6 0.5 0.0-2.0 % Neutrophils # (Auto) 6.3 5.0 1.6-8.6 10 ^3/uL Lymphocytes # (Auto) 2.7 2.6 0.4-5.4 10 ^3/uL Monocytes # (Auto) 1.0 0.9 0-1.3 10 ^3/uL Eosinophils # (Auto) 0.3 0.2 0-0.8 10 ^3/uL Basophils # (Auto) 0.1 0 0-0.2 10 ^3/uL Nucleated Red Blood Cells 0.1 0.0 % Sodium Level 139 139 136-145 mmol/L Potassium Level 3.8 3.8 3.5-5.1 mmol/L Chloride Level 107 105 98-107 mmol/L Carbon Dioxide Level 23 26 20-31 mmol/L Anion Gap 9 8 5-15 Blood Urea Nitrogen 13 18 9-23 mg/dL Creatinine 0.83 1.05 0.700-1.30 mg/dL Glomerular Filtration Rate Calc 113 92 >90 mL/min BUN/Creatinine Ratio 15.7 17.1 10.0-20.0 Serum Glucose 116 H 126 H 74-106 mg/dL Calcium Level 9.9 9.9 8.7-10.4 mg/dL Total Bilirubin 0.3 0.5 0.2-1.0 mg/dL Aspartate Amino Transferase (AST) 21 21 13-40 U/L Alanine Aminotransferase (ALT) 33 33 7-40 U/L Alkaline Phosphatase 87 84 46-116 U/L Total Protein 7.0 6.9 5.7-8.2 g/dL Albumin 4.1 4.1 3.2-4.8 g/dL Urine Creatinine 140.94 H 30.0-125.0 mg/dL Urine Protein/Creatinine Ratio 1.17 Urine Total Protein 165.1 H 1-14 mg/dL Prothrombin Time 10.7 9.3-11.8 sec Prothrombin Time INR 1.01 0.9-1.15 Test 03/15/25 12:52 03/15/25 06:30 03/15/25 05:00 03/14/25 21:54 Range/Units Anti-Nuclear Antibody Comment Comment . JOHANNA-1 Antibody <0.2 0.0-0.9 AI SS-A/Ro Antibody <0.2 0.0-0.9 AI SS-B/La Antibody <0.2 0.0-0.9 AI Sm Antibody <0.2 0.0-0.9 AI PRN OCCUPATIONAL THERAPIST Antibody 3.7 H 0.0-0.9 AI Scl-70 (Scleroderma) Antibody <0.2 0.0-0.9 AI Anti-Double Strand DNA Antibody <1 0-9 IU/mL Chromatin Antibody <0.2 0.0-0.9 AI Centromere B Antibody <0.2 0.0-0.9 AI White Blood Count 13.2 H 14.8 H 4.4-10.8 10^3/uL Red Blood Count 5.62 6.09 H 4.5-5.90 10^6/uL Hemoglobin 16.3 17.8 H 13.5-17.5 g/dL Hematocrit 49.1 53.5 H 41.0-53.0 % Mean Corpuscular Volume 87.4 87.8 80.0-100.0 fL Mean Corpuscular Hemoglobin 29.0 29.3 28.0-32.0 pg Mean Corpuscular Hemoglobin Concent 33.2 33.3 32.0-36.0 g/dL Red Cell Distribution Width 14.5 H 14.4 H 11.8-14.3 % Platelet Count 301 322 140-450 10^3/uL Mean Platelet Volume 8.4 8.8 6.9-10.8 fL Neutrophils (%) (Auto) 55.5 72.9 37.0-80.0 % Lymphocytes (%) (Auto) 29.8 17.1 10.0-50.0 % Monocytes (%) (Auto) 12.6 H 9.2 0.0-12.0 % Eosinophils (%) (Auto) 1.3 0.4 0.0-7.0 % Basophils (%) (Auto) 0.8 0.4 0.0-2.0 % Neutrophils # (Auto) 7.3 10.8 H 1.6-8.6 10 ^3/uL Lymphocytes # (Auto) 3.9 2.5 0.4-5.4 10 ^3/uL Monocytes # (Auto) 1.7 H 1.4 H 0-1.3 10 ^3/uL Eosinophils # (Auto) 0.2 0.1 0-0.8 10 ^3/uL Basophils # (Auto) 0.1 0.1 0-0.2 10 ^3/uL Nucleated Red Blood Cells 0.1 0.1 % Erythrocyte Sedimentation Rate 48 H 0-20 mm/hr Sodium Level 139 140 136-145 mmol/L Potassium Level 3.6 3.8 3.5-5.1 mmol/L Chloride Level 103 103 98-107 mmol/L Carbon Dioxide Level 26 27 20-31 mmol/L Anion Gap 10 10 5-15 Blood Urea Nitrogen 16 12 9-23 mg/dL Creatinine 1.18 0.98 0.700-1.30 mg/dL Glomerular Filtration Rate Calc 81 101 >90 mL/min BUN/Creatinine Ratio 13.6 12.2 10.0-20.0 Serum Glucose 109 H 104 74-106 mg/dL Hemoglobin A1c 6.1 H <5.7 % A1C Calcium Level 10.1 10.9 H 8.7-10.4 mg/dL C-Reactive Protein High Sensitivity 5.60 H <1.0 mg/dL Vitamin B12 Level 498 211-911 pg/mL Vitamin D 25-Hydroxy 19.6 L 30.0-100 ng/mL Folic Acid 15.91 >5.38 ng/mL HIV (1&2) Antibody Negative Negative Urine Color Yellow Yellow Urine Clarity Clear Clear Urine pH 6.5 5.0-9.0 Urine Specific [place] 1.025 1.001-1.035 Urine Protein 3+ H Negative Urine Ketones Negative Negative Urine Blood Negative Negative /uL Urine Nitrite Negative Negative Urine Bilirubin Negative Negative Urine Urobilinogen 3 H Negative mg/dL Urine Leukocyte Esterase Negative Negative /uL Urine RBC <1 0 - 3 /hpf Urine Microscopic WBC 1 0-3 /HPF Urine Squamous Epithelial Cells Few <5 /hpf Urine Bacteria None seen None Seen /hpf Urine Granular Casts Few 0 /lpf Urine Mucus Few None Seen Urine Yeast (Budding) Occasional None Seen /hpf Urine Creatinine 248.23 H 30.0-125.0 mg/dL Urine Sodium 44 40-220 mmol/L Urine Glucose Normal Normal mg/dL Urine Total Protein 727.3 H 1-14 mg/dL Urine Opiates Screen Pos NEGATIVE Urine Fentanyl Screen Neg NEGATIVE Urine Barbiturates Screen Neg NEGATIVE Urine Phencyclidine Screen Neg NEGATIVE Urine Amphetamines Screen Neg NEGATIVE Urine Benzodiazepines Screen Neg NEGATIVE Urine Cocaine Screen Neg NEGATIVE Urine Cannabinoids Screen Neg NEGATIVE Lactic Acid Level 1.6 0.4-2.0 mmol/L Magnesium Level 1.9 1.6-2.6 mg/dL Total Bilirubin 1.0 0.2-1.0 mg/dL Aspartate Amino Transferase (AST) 21 13-40 U/L Alanine Aminotransferase (ALT) 40 7-40 U/L Alkaline Phosphatase 104 46-116 U/L Creatine Kinase 100 46-171 U/L B-Type Natriuretic Peptide 0.19 0-100 pg/mL Total Protein 8.6 H 5.7-8.2 g/dL Albumin 5.1 H 3.2-4.8 g/dL Thyroid Stimulating Hormone (TSH) 0.98 0.55-4.78 uIU/mL Microbiology Date/Time Source Procedure Growth Status 03/15/25 05:00 Voided Urine Urine Culture - Final Complete Assessment 40-year-old male no previous medical follow-up presents to the hospital complaining of bilateral leg swelling which has now resolved and was diagnosed with inguinal hernia. Nephrology consulted due to proteinuria. Proteinuria; supple nephrotic Prediabetes Morbid obesity Inguinal hernia Patient does have proteinuria evidenced by 3+ UA and a urine protein creatinine ratio initially of approximately 2.9 g and once repeated was approximately 1 g. This is likely related to patient's metabolic syndrome of prediabetes and morbid obese. Recommend lifestyle modification and conservative low-sodium diet. If patient has a blood pressure greater than 130/80 then I recommend starting an LISS inhibitor or Arb as first-line. At this time no further recommendations rest of care as per primary medical team. We will follow up patient in a few months to re-evaluate patient's metabolic panel and urine protein creatinine ratio in clinic thank you we will sign off the case. care time 55mins patient now has my office card Plan discussed with: Patient YUN SHEIKH MD Mar 17, 2025 11:46
[2025-03-17 13:00] VITALS: BP 121/86; PULSE 77; RESP 18; TEMP 98.5; O2SAT 94
[2025-03-17] MEDS ORDERED: KETOROLAC TROMETH 30 MG/ML 1ML VIAL IV ONE (14:00)
[2025-03-17] MEDS ORDERED: IBUP-1454 PO (14:36)
[2025-03-17 14:41] VITALS: BP 121/86; PULSE 77; RESP 18; TEMP 98.5; O2SAT 94
--- NOTE | 2025-03-17 17:20 | DVHDSRES ---
Discharge Summary Date of Admission Resident Creating Document: ELAINA MATA RESIDENT Mar 15, 2025 at 01:57 Date of Discharge: Mar 17, 2025 Admitting Diagnosis Left inguinal Hernia//Bilateral Leg pain Wounds: No wounds on admission. Labs/Diagnostic Data: Laboratory Results Test 03/17/25 06:35 03/16/25 22:00 03/16/25 16:45 03/15/25 12:52 White Blood Count 10.4 10^3/uL (4.4-10.8) Red Blood Count 5.13 10^6/uL (4.5-5.90) Hemoglobin 15.0 g/dL (13.5-17.5) Hematocrit 45.0 % (41.0-53.0) Mean Corpuscular Volume 87.7 fL (80.0-100.0) Mean Corpuscular Hemoglobin 29.3 pg (28.0-32.0) Mean Corpuscular Hemoglobin Concent 33.4 g/dL (32.0-36.0) Red Cell Distribution Width 14.1 % (11.8-14.3) Platelet Count 292 10^3/uL (140-450) Mean Platelet Volume 8.7 fL (6.9-10.8) Neutrophils (%) (Auto) 60.7 % (37.0-80.0) Lymphocytes (%) (Auto) 26.1 % (10.0-50.0) Monocytes (%) (Auto) 9.5 % (0.0-12.0) Eosinophils (%) (Auto) 3.1 % (0.0-7.0) Basophils (%) (Auto) 0.6 % (0.0-2.0) Neutrophils # (Auto) 6.3 10 ^3/uL (1.6-8.6) Lymphocytes # (Auto) 2.7 10 ^3/uL (0.4-5.4) Monocytes # (Auto) 1.0 10 ^3/uL (0-1.3) Eosinophils # (Auto) 0.3 10 ^3/uL (0-0.8) Basophils # (Auto) 0.1 10 ^3/uL (0-0.2) Nucleated Red Blood Cells 0.1 % Sodium Level 139 mmol/L (136-145) Potassium Level 3.8 mmol/L (3.5-5.1) Chloride Level 107 mmol/L (98-107) Carbon Dioxide Level 23 mmol/L (20-31) Anion Gap 9 (5-15) Blood Urea Nitrogen 13 mg/dL (9-23) Creatinine 0.83 mg/dL (0.700-1.30) Glomerular Filtration Rate Calc 113 mL/min (>90) BUN/Creatinine Ratio 15.7 (10.0-20.0) Serum Glucose 116 mg/dL (74-106) Calcium Level 9.9 mg/dL (8.7-10.4) Total Bilirubin 0.3 mg/dL (0.2-1.0) Aspartate Amino Transferase (AST) 21 U/L (13-40) Alanine Aminotransferase (ALT) 33 U/L (7-40) Alkaline Phosphatase 87 U/L (46-116) Total Protein 7.0 g/dL (5.7-8.2) Albumin 4.1 g/dL (3.2-4.8) Urine Creatinine 140.94 mg/dL (30.0-125.0) Urine Protein/Creatinine Ratio 1.17 Urine Total Protein 165.1 mg/dL (1-14) Prothrombin Time 10.7 sec (9.3-11.8) Prothrombin Time INR 1.01 (0.9-1.15) Anti-Nuclear Antibody Comment Comment (.) JOHANNA-1 Antibody <0.2 AI (0.0-0.9) SS-A/Ro Antibody <0.2 AI (0.0-0.9) SS-B/La Antibody <0.2 AI (0.0-0.9) Sm Antibody <0.2 AI (0.0-0.9) [employer] Antibody 3.7 AI (0.0-0.9) Scl-70 (Scleroderma) Antibody <0.2 AI (0.0-0.9) Anti-Double Strand DNA Antibody <1 IU/mL (0-9) Chromatin Antibody <0.2 AI (0.0-0.9) Centromere B Antibody <0.2 AI (0.0-0.9) Test 03/15/25 06:30 03/15/25 05:00 03/14/25 21:54 Erythrocyte Sedimentation Rate 48 mm/hr (0-20) Hemoglobin A1c 6.1 % A1C (<5.7) C-Reactive Protein High Sensitivity 5.60 mg/dL (<1.0) Vitamin B12 Level 498 pg/mL (211-911) Vitamin D 25-Hydroxy 19.6 ng/mL (30.0-100) Folic Acid 15.91 ng/mL (>5.38) HIV (1&2) Antibody Negative (Negative) Urine Color Yellow (Yellow) Urine Clarity Clear (Clear) Urine pH 6.5 (5.0-9.0) Urine Specific [place] 1.025 (1.001-1.035) Urine Protein 3+ (Negative) Urine Ketones Negative (Negative) Urine Blood Negative /uL (Negative) Urine Nitrite Negative (Negative) Urine Bilirubin Negative (Negative) Urine Urobilinogen 3 mg/dL (Negative) Urine Leukocyte Esterase Negative /uL (Negative) Urine RBC <1 /hpf (0 - 3) Urine Microscopic WBC 1 /HPF (0-3) Urine Squamous Epithelial Cells Few /hpf (<5) Urine Bacteria None seen /hpf (None Seen) Urine Granular Casts Few /lpf (0) Urine Mucus Few (None Seen) Urine Yeast (Budding) Occasional /hpf (None Urine Sodium 44 mmol/L (40-220) Urine Glucose Normal mg/dL (Normal) Urine Opiates Screen Pos (NEGATIVE) Urine Fentanyl Screen Neg (NEGATIVE) Urine Barbiturates Screen Neg (NEGATIVE) Urine Phencyclidine Screen Neg (NEGATIVE) Urine Amphetamines Screen Neg (NEGATIVE) Urine Benzodiazepines Screen Neg (NEGATIVE) Urine Cocaine Screen Neg (NEGATIVE) Urine Cannabinoids Screen Neg (NEGATIVE) Lactic Acid Level 1.6 mmol/L (0.4-2.0) Magnesium Level 1.9 mg/dL (1.6-2.6) Creatine Kinase 100 U/L (46-171) B-Type Natriuretic Peptide 0.19 pg/mL (0-100) Thyroid Stimulating Hormone (TSH) 0.98 uIU/mL (0.55-4.78) Other Laboratory Tests 03/17/25 06:35 Brief Hx & Hospital Course: PHI: Mr. Bautista is a 39 years old male with past medical history of left-sided inguinal hernia, Visit the ED with a complaint of 1 week of bilateral lower leg pain, redness and swelling. As per patient he has been having intractable bilateral lower leg pain, 10/10, crampy, constant, some relief with pain medication. Patient also reported his legs are getting swollen over the last week. On further inquiry patient reported he has chronic scrotal swelling for about 5 years patient was lately got worse, with pressure sensation. Also, he report left knee pain with passive movements and difficulty to deambulate or bear weight. Patient denied scrotal pain, penile discharge, constipation, abdominal pain, fever, chest pain, dysuria, shortness of breath, diarrhea. Initial lab workup revealed leukocytosis with WBC 14.8, hemoglobin 17.8 ; Testicular ultrasound revealed-Multilobulated cystic structure with some dependent heterogeneous material within the left testis is consistent with spermatocele. Partial visualization of fat within the left inguinal canal consistent with the history of inguinal hernia. CXR no acute cardiopulmonary disease. Doppler study of the lower extremity negative for DVT. Admission course: during his first admission day, the patient complained of pain in bilateral lower legs, scrotal pressure, knee pain. Denied fever, chills, abdominal pain or other. Vital signs were within normal limits, labs reported .8.7 WBC. The Urology team and surgery team were consulted. Surgery recommended elective hernia repair as outpatient. Urology said no urologic intervention indicated at this time. The patient was started on Ceftriaxone 1g and doxycycline. Urine analysis showed proteinuria, nephrology will be consulted for possible nephrotic syndrome. Nephrology team reported: the Patient does have proteinuria evidenced by 3+ UA and a urine protein creatinine ratio initially of approximately 2.9 g and once repeated was approximately 1 g. This is likely related to patient's metabolic syndrome of prediabetes and morbid obese. Recommend lifestyle modification and conservative low-sodium diet. If patient has a blood pressure greater than 130/80 then I recommend starting an LISS inhibitor or Arb as first-line. At this time no further recommendations rest of care as per primary medical team. We will follow up patient in a few months to re-evaluate patient's metabolic panel and urine protein creatinine ratio in clinic. The patient report improvement in leg swelling and pain. Due to significant improvement of symptoms the patient will be discharged today. He will continue follow up in the discharge clinic, F/U with surgery for elective left inguinal hernia repair. F/U with nephrology for proteinuria and, F/U with orthopedic for knee pain. ROS: Allergy- NKDA Patient was seen today at the bedside. patient in distress. Cardiovascular- deny acute chest pain or shortness of breath or cough or palpitation Respiratory denies cough or short of breath or wheezing Gastrointestinal- denies any rectal bleeding, nausea Musculoskeletal- reports improvement, mild bilateral leg pain. Neurological- denies acute dysarthria, dysphagia, change in vision Psychiatry- denies depression or SI or HI Examination on the day of discharge: General examination-awake , alert, conversant HEENT- PEERLA, no acute nasal discharge Cardiovascular- S1-S2 audible, rate and rhythm regular, no murmur Respiratory- CTAB, no wheeze or rhonchi Gastrointestinal-nontender, bowel sound+. Nondistended Musculoskeletal- decreased tenderness of left knee Lower extremity- no tenderness, no edema. Genitourinary-scrotal swelling and pressure due to left inguinal hernia. Neurological- cranial nerves intact, no acute dysarthria or dysphagia Psychiatry- denies depression or SI or HI Skin- no acute rash or purpura. Problem List/Assessment/Plan # Intractable bilateral lower extremity pain #SIRS/Sepsis without AOD #Non- reducible left inguinal hernia/ Non Incarcerated left inguinal hernia. # Nephrotic Syndrome #Left knee pain, Rule out meniscus tear # Scrotal swelling with tenderness, spermatocele # Obesity #Prediabetic Discharge Plan: Low carbohydrate diet Exercise at tolerance Follow up in the discharge clinic, F/U with surgery for elective left inguinal hernia repair. F/U with nephrology for proteinuria F/U with orthopedic for knee pain. Ibuprofen 600mg po prn for pain. Goals of care discussed with the patient for 20 minutes; Code status: Full code PCP: not established yet. Advised to follow up with discharge clinic in order to get help to establish care with a new primary care provider Total time spent on patient evaluation, chart review, assessment and plan, discussion discussion >35 minutes Plan discussed with: Patient, patients agrees with the discharge plan. Consults/Reason for consult Urology: for left spermatocele//Surgery: Left inguinal hernia//Nephrology: Proteinuria Operations or Procedures CT PELVIS WITH CONTRAST [id number] HISTORY: R/O ABSCESS OF SCROTUM COMPARISON: 03/15/25 PROCEDURE: Helical CT images were obtained of the pelvis with intravenous contrast. Sagittal and coronal reconstructions are provided. ORAL CONTRAST: None. ADDITIONAL IMAGES: None TOTAL RADIATION DOSE: CTDIvol: 35.41 mGy DLP: 1690.07 mGy x cm FINDINGS: BOWEL: In the appendix is normal. VISUALIZED KIDNEYS AND URETER: Normal. BLADDER: Normal. REPRODUCTIVE ORGANS: Normal. LYMPH NODES: No lymphadenopathy. PERITONEUM / RETROPERITONEUM: Normal. VESSELS:Normal ABDOMINAL WALL: Similar large fat containing left inguinal hernia that descends into the scrotum . BONES: Normal. IMPRESSION: Similar large fat containing left inguinal hernia that descends into the scrotum . No focal fluid collection to suggest for abscess. Exam: CT CT AB PEL WO CON-NO ORAL OR IV History: ABDOMINO - SCROTAL PAIN Comparison Study: None Technique: Multidetector spiral CT of the abdomen was performed from lung bases to pubic symphysis. Imaging was performed without IV contrast. Axial, coronal and sagittal multiplanar reformats were obtained from the axial data set by the technologist. Radiation Dose : 1. Abdomen/Pelvis: CTDIvol 25.6 mGy, DLP 1952 mGy*cm. Findings: Evaluation of solid organs is limited due to lack of intravenous contrast use. Lung Bases: No acute or significant lung base finding. Normal heart size. No pleural or pericardial effusion. Liver: Hepatic steatosis. Hepatomegaly. Gallbladder and Biliary Tree: Unremarkable Spleen: Unremarkable Pancreas: The pancreas is grossly normal in appearance. Adrenal Glands: Unremarkable Kidneys: Kidneys are grossly normal without calculi or hydronephrosis. Bladder: Grossly unremarkable for degree of distention. Bowel: The stomach is grossly normal in appearance. Small bowel and colon are normal in caliber and distribution. The appendix is not visualized; however, no secondary findings of acute appendicitis identified. Ascites: Absent Lymphadenopathy: No mesenteric, retroperitoneal or periportal lymphadenopathy. Abdominal Wall and Mesentery: Large fat containing left inguinal hernia is present. Vasculature: The visualized abdominal aorta is normal in size and caliber. Evaluation of abdominal and pelvic vessels is limited due to lack of intravenous contrast. Pelvic Organs: Unremarkable Musculoskeletal: No aggressive focal bony lesions, acute fractures or dislocation. IMPRESSION: Large fat containing left inguinal hernia. Bilateral lower extremity venous duplex Clinical History: Bilateral leg swelling, rule out DVT Comparison: None Technique: Duplex Doppler evaluation of the deep venous systems of both lower extremities from the common femoral veins to the popliteal veins including color Doppler and spectral/pulsed waveform analysis was performed. Findings: RIGHT SIDE: The common femoral vein demonstrates appropriate compressibility and waveform variability. There is compressibility/patency of the great saphenous vein at the proximal thigh. The femoral vein demonstrates appropriate compressibility and waveform variability. The deep femoral vein demonstrates appropriate compressibility and waveform variability. The popliteal vein demonstrates appropriate compressibility and waveform variability. There is normal compressibility at the tibioperoneal trunk. LEFT SIDE: The common femoral vein demonstrates appropriate compressibility and waveform variability. There is compressibility/patency of the great saphenous vein at the proximal thigh. The femoral vein demonstrates appropriate compressibility and waveform variability. The deep femoral vein demonstrates appropriate compressibility and waveform variability. The popliteal vein demonstrates appropriate compressibility and waveform variability. There is normal compressibility at the tibioperoneal trunk. Impression: 1. No right or left femoropopliteal venous thrombosis. SCROTAL ULTRASOUND REASON FOR EXAM: Left groin hernia known for 5 years. Testicular pain x3 days. Swelling. COMPARISON: None TECHNIQUE: Real-time sector scans and duplex color flow Doppler imaging of the scrotal contents was performed. FINDINGS: The right testicle measures 3.4 x 1.6 x 1.9 cm. The left testicle measures 2.4 x 1.1 x 1.7 cm. No solid testicular mass is identified. There is a 1.2 x 0.7 x 0.5 cm multilobulated, anechoic cystic structure within the left testis with some dependent heterogeneous material. Flow was seen within the right and left testicle. There is no hyperemia. No hydrocele or varicocele is identified. The epididymides are not identified. There is partial visualization of fat within the left inguinal canal consistent with the history of left inguinal hernia. IMPRESSION: Normal flow identified within both testes. No evidence of torsion. Multilobulated cystic structure with some dependent heterogeneous material within the left testis is consistent with spermatocele. Partial visualization of fat within the left inguinal canal consistent with the history of inguinal hernia. T RADIOGRAPH Indication: sob Technique: Single frontal view of the chest was obtained Comparison: None FINDINGS: Lines and Tubes: None Lungs: No focal consolidation. Pleura: No effusion. No pneumothorax. Cardiomediastinal contours: Unremarkable Bones: No acute osseous abnormality. IMPRESSION: 1. No acute cardiopulmonary disease. HS:Y : CT CT L KNEE WO CONTRAST HISTORY: effusion COMPARISON: None TECHNIQUE: Noncontrast axial CT images of the left knee were performed. Sagittal and coronal reformatted images were obtained. This CT exam was performed using one or more of the following dose reduction techniques: Automated exposure control, adjustment of the mA and/or kv according to patient size, or the use of iterative reconstruction techniques. Radiation Dose Information: CTDI volume is 8 mGy. Dose-length product is 245.3 mGy*cm FINDINGS: No acute fracture is identified about left knee. Mild osteoarthrosis of the left knee. Trace left knee joint effusion. IMPRESSION: 1. Mild osteoarthrosis of the left knee. 2. Trace left knee joint effusion. CATION: Nephrotic syndrome TECHNIQUE: Multiple real-time sonographic images of the kidneys and bladder were obtained. COMPARISON: 03/15/25 FINDINGS: The right kidney measures 13 cm in length, which is normal in size. There is normal echogenicity of the right kidney. No hydronephrosis. The left kidney measures 13 cm in length, which is normal in size. There is normal echogenicity of the left kidney. No hydronephrosis. No large intraluminal masses are seen in the bladder. Prior to voiding the bladder volume measures volume 185 cc. IMPRESSION: Mild enlargement of the bilateral kidneys. No hydronephrosis. ICAL INDICATION: Left knee pain TECHNIQUE: 2 radiographic views of the left knee were obtained. Comparison: None FINDINGS/IMPRESSION: There is no evidence of acute fracture or dislocation. The visualized joint space is well maintained. The alignment is anatomical. There is no radiopaque foreign body. Condition at Discharge: Stable Final Diagnosis/Problems List # Intractable bilateral lower extremity pain #Non- reducible left inguinal hernia/ Non Incarcerated left inguinal hernia. # Nephrotic Syndrome #Left knee pain, Rule out meniscus tear # Scrotal swelling with tenderness, spermatocele # Obesity #Prediabetic Discharge Disposition: Home SNF Discharge Will this Physician continue t: No Discharge Instruct/Medications Diet: See Comment Diet comment: Low Carbohydrate diet Activity: No Restrictions, As Tolerated Follow Up/Referral: F/U in discharge clinic in one week in order to: F/U with surgery for elective left inguinal hernia repair/F/U with nephrology for proteinuria/F/U with orthopedic for knee pain. Medications: Continue with home medications Ibuprophen 600mg po prn for pain Scheduled PRN Ibuprofen (Ibuprofen), 600 MG PO BIDPRN PRN Discharge Statement: "Patient was advised to return to the ER or call 911 if any headaches, dizziness, shortness of breath, chest pain, abdominal pain, bleeding, fevers, or worsening of medical condition. Patient was counseled about treatment plan, medications, possible side effects, patientverbalized understanding. All questions were answered to the best of my ability. This discharge took greater then 30 minutes in planning, reviewing documentation, counseling the patient, and discussing with other team members." Addendum Addendum Addendum I was physically present for the quinn portions of the service provided to patient by THE RESIDENT. I have reviewed the documentation, discussed the case with resident and agree with the resident's documentation except as noted. Also the patient's clinical case was discussed with the patient's nurse. This medical document was created using an electronic medical record system with computerized dictation system. Although this document has been carefully reviewed, there might still be some phonetic and typographical errors. These areas are purely typographical due to imperfections of the software programs, and do not reflect any compromise in the patient's medical care. Late signature. Date of Service: Mar 17, 2025 Billing Provider: ELAINE PEREZ MD Common Visit Codes: 89485-RPC/OBS DISCH DAY >30min Secondary Visit Codes: 15312-HSPSWPIR CARE PLAN 30 MINUTES (20 minutes) ELAINA MATA Mar 17, 2025 17:20 ELAINE PEREZ MD Mar 18, 2025 14:22
[2025-03-17 20:07] LABS: Chlamydia Trachomatis, NAA Negative (Negative); Neisseria gonorrhoeae, NAA Negative (Negative)
== END 2025-03-17 17:30 | disposition home or self-care (01) | DRG 462 ==
LOC: ER 20:19 → OVERFLOW 03-15 01:57 → WEST WING 03-15 17:22
PROVIDERS: ADMIT Student in an Organized Health Care Education/Training Program; ATTEND Nurse Practitioner Family
DX: N04.9 Nephrotic syndrome with unspecified morphologic changes (principal); K40.30 Unilateral inguinal hernia, with obstruction, without gangrene, not specified as recurrent; R65.10 Systemic inflammatory response syndrome (SIRS) of non-infectious origin without acute organ dysfunction; E66.01 Morbid (severe) obesity due to excess calories; Z68.41 Body mass index [BMI] 40.0-44.9, adult; M23.207 Derangement of unspecified meniscus due to old tear or injury, left knee; N43.41 Spermatocele of epididymis, single; R73.03 Prediabetes; Z87.891 Personal history of nicotine dependence; Z83.3 Family history of diabetes mellitus
CPT/HCPCS: 36415; 71045; 72193; 73560; 73700; 74176; 76775; 76870; 80048; 80053; 80307; 81001; 82306; 82550; 82570; 82607; 82746; 83036; 83516; 83605; 83735; 83880; 84156; 84300; 84443; 85025; 85610; 85652; 86141; 86225; 86235; 86703; 87040; 87086; 93970; G0378; J1885; J2405

== ENCOUNTER 2025-08-06 12:08 | Emergency (ER) | payer SELFPAY ==
[~2025-08-06] VITALS: Ht 175.3 cm; Wt 136.9 kg
[~2025-08-06 12:08] MED LIST: IBUP-1454 PO
[2025-08-06] MEDS: HYDROcodone-ACET 10/325MG TAB PO ONE (12:45)
--- NOTE | 2025-08-06 12:50 | ED.PDOC ---
Musculoskeletal HPI Comments The patient presented with foot pain that began suddenly without a known injury. The patient reported experiencing pain in the feet that started on Wednesday, with today being Wednesday. The pain was located at the bottom of the feet and extended to the ankle. The patient mentioned that the toes felt numb, and they could only move three of them. The patient did not report any previous trauma to the affected feet. Denies previous surgeries to the ankle Denies redness or swelling around the ankle Denies fever chills night sweats nausea vomiting Chief Complaint: Lower Extremity Time Seen by MD: 12:30 Reviewed Notes: Nurses Notes, Medications, Allergies Allergies: Coded Allergies: NO KNOWN ALLERGIES (Unverified , 03/15/25) Home Meds Active Scripts Naproxen (Naproxen) 500 Mg Tab, 500 MG PO BIDPC for 10 Days, #20 TAB 0 Refills Prov:ALYSE HILL MATERIAL MOVER 08/06/25 Ibuprofen (Ibuprofen) 600 Mg Tab, 600 MG PO BIDPRN PRN for 14 Days, #28 TAB Prov:KENIA KEN RESIDENT 03/17/25 Information Source: Patient Mode of Arrival: Ambulatory Location: Bilateral Extremity Location: Ankle, Foot Timing: Days Prehospital treatment: None Severity: Moderate Able to Move Extremity: Yes Bear Weight: Limited Pain: Moderate Hand Dominance: Right Mechanism: Spontaneous Circumstances: Spontaneous Onset of Symptoms: Spontaneous Symptoms: Pain, Erythema DVT Risk Factors: NONE Associated signs and symptoms: Foot pain Past Medical History PAST MEDICAL HISTORY: Denies Surgical History: Denies all surgeries Family History Family History: Reviewed,noncontributory to illness, Unknown Social History Smoker: Non-Smoker Alcohol: Denies ETOH Use Drugs: Denies Drug Use Lives In: Home Constitutional: denies: chills, diaphoresis, fatigue, fever, malaise, sweats, weakness, others EENTM: denies: blurred vision, double vision, ear bleeding, ear discharge, ear drainage, ear pain, ear ringing, eye pain, eye redness, hearing loss, mouth pain, mouth swelling, nasal discharge, nose bleeding, nose congestion, nose pain, photophobia, tearing, throat pain, throat swelling, voice changes, others Respiratory: denies: cough, hemoptysis, orthopnea, SOB at rest, shortness of breath, SOB with excertion, stridor, wheezing, others Cardiovascular: denies: chest pain, dizzy spells, diaphoresis, Dyspnea on exertion, edema, irregular heart beat, left arm pain, lightheadedness, palpit ations, PND, syncope, others Gastrointestinal: denies: abdomen distended, abdominal pain, blood streaked b owels, constipated, diarrhea, dysphagia, difficulty swallowing, hematemesis, melena, nausea, poor appetite, poor fluid intake, rectal bleeding, rectal pain, vomiting, others Genitourinary: denies: burning, dysuria, flank pain, frequency, hematuria, incontinence, penile discharge, penile sore, pain, testicle pain, testicle swelling, urgency, others Neurological: denies: dizziness, fainting, headache, left sided numbness, left sided weakness, numbness, paresthesia, pre-existing deficit, right sided numbness, right sided weakness, seizure, speech problems, tingling, tremors, weakness, others Musculoskeletal: reports: others (Bilateral feet and ankle pain); denies: back pain, gout, joint pain, joint swelling, muscle pain, muscle stiffness, neck pain Integumetry: denies: bruises, change in color, change in hair/nails, dryness, laceration, lesions, lumps, rash, wounds, others Allergic/Immunocompromised: denies: Difficulty Healing, Frequent Infections, Hives, Itching, others Hematologic/Lymphatic: denies: anemia, blood clots, easy bleeding, easy bruising, swollen glands, others Endocrine: denies: excessive hunger, excessive sweating, excessive thirst, excessive urination, flushing, intolerance to cold, intolerance to heat, unexplained weight gain, unexplained weight loss, others Psychiatric: denies: anxiety, bipolar disorder, depression, hopeless, panic disorder, schizophrenia, sleepless, suicidal, others All Other Systems: Reviewed and Negative Physical Exam Exam Comments No deformity, no erythema, no soft tissue swelling, localized TTP to the dorsal and volar aspect of the metatarsals, tenderness to palpation, neurovascularly sensation intact, pulses 2+ General Appearance: No Apparent Distress, Normal HEENT: Normal ENT Inspection, Pharynx Normal, TMs Normal Neck: Full Range of Motion, Non-Tender, Normal, Normal Inspection Respiratory: Chest Non-Tender, Lungs Clear, No Accessory Muscle Use, No Respiratory Distress, Normal Breath Sounds Cardiovascular: No Edema, No JVD, No Murmur, No Gallop, Normal Peripheral Pulses, Regular Rate/Rhythm Breast Exam: Deferred Gastrointestinal: No Organomegaly, Non Tender, No Pulsatile Mass, Normal Bowel Sounds, Soft Genitalia: Deferred Pelvic: Deferred Rectal: Deferred Extremities: No calf tenderness, Normal capillary refill, Normal inspection, Normal range of motion, Non-tender, No pedal edema Musculoskeletal : Apperance: Normal Neurologic: Alert, manager utilization review II-XII nml as Tested, No Motor Deficits, Normal Affect, Normal Mood, No Sensory Deficits Cerebellar Function: Normal Reflexes: Normal Skin: Dry, Normal Color, Warm Lymphatic: No Adenopathy Was a procedure done? Was a procedure done?: No Differential Diagnosis EXT Differential Diagnosis: Other X-Ray, Labs, Meds, VS Vital Signs Date Time Temp Pulse Resp B/P (MAP) Pulse Ox O2 Delivery O2 Flow Rate FiO2 08/06/25 14:11 98.2 94 18 124/85 (98) 95 98.2 08/06/25 14:11 94 18 95 Room Air 08/06/25 12:12 97.5 105 19 133/92 97 97.5 X-Ray, Labs, Meds, VS Comment Patient arrives alert and oriented, ABC's intact, afebrile, vital signs stable, saturating well in room air The patient presented with sudden onset foot pain without a history of trauma. The differential diagnosis included chronic foot pain or possibly a foot condition such as plantar fasciitis, given the location and characteristics of the pain. The lack of erythema or swelling suggested no acute inflammatory process, and the presence of anochiomycosis indicated possible fungal involvement of the toenails. - Treatment: Localized pain management was planned, and the patient was advised to follow up with their primary care physician. - Tests: X-rays of the foot were ordered to rule out any structural abnormalities. - The patient was advised on the importance of follow-up care with their doctor and to monitor for any signs of infection or worsening symptoms. - Follow-Up: The patient was instructed to follow up with their primary care physician for further evaluation and management. - Disposition: The patient was to return home with a ride later in the day. Additional MDM Review of External, Non-ED records: External records reviewed. Discussion with independent historian (EMS, family) history obtained from the patient/parents (if applicable) at bedside Chronic conditions affecting care: None Social determinants of health affecting care: None Consideration of admission (observation or admission): I considered escalation of care to admission for this patient, however given the reassuring workup, the patient is safe for outpatient management. Discussion with the Radiology: No Tests considered but not performed: Prescription medication considered but not given: Time of 1ST Reevaluation: 13:00 Reevaluation 1ST: Unchanged Patient Education/Counseling: Diagnosis, Treatment, Prognosis Family Education/Counseling: No Family Present Departure 1 Departure Time of Disposition: 13:47 Impression: Primary Impression: Metatarsalgia of both feet Disposition: 01 HOME / SELF CARE / HOMELESS Condition: Stable e-Prescriptions Naproxen (Naproxen) 500 Mg Tab 500 MG PO BIDPC for 10 Days, #20 TAB 0 Refills Prov: ALYSE HILL NP 08/06/25 Critical Care Note Critical Care Time?: No Stability Stability form required: No Heart Score Heart Score: Heart Score Response (Comments) Value History N/A 0 EKG N/A 0 Age N/A 0 Risk Factors N/A 0 Troponin N/A 0 Total 0 I personally scribed for ALYSE HILL NP ([email or web address]) on 08/06/25 at 12:50. Electronically submitted by Max Dillon ([email or web address]). ALYSE HILL NP Aug 06, 2025 12:50
--- NOTE | 2025-08-06 13:20 | DVH ---
CLINICAL INDICATION: Bilateral foot pain TECHNIQUE: XYXY L FOOT 3 VIEW XRAY Comparison: None FINDINGS/IMPRESSION: : There is no evidence of acute fracture or dislocation. Soft tissues are unremarkable.
--- NOTE | 2025-08-06 13:23 | DVH ---
CLINICAL INDICATION: Bilateral foot pain TECHNIQUE: XYXY R FOOT 3 VIEW XRAY Comparison: XY L FOOT 3 VIEW XRAY on DOS: 08/06/25 FINDINGS/IMPRESSION: : There is no evidence of acute fracture or dislocation. Soft tissues are unremarkable.
[2025-08-06] MEDS ORDERED: NAPR-746 PO (13:48)
[2025-08-06 14:11] VITALS: BP 124/85; PULSE 94; RESP 18; TEMP 98.2; O2SAT 95
== END 2025-08-06 14:13 | disposition home or self-care (01) ==
LOC: ER 12:08
DX: M77.41 Metatarsalgia, right foot (principal); M77.42 Metatarsalgia, left foot
CPT/HCPCS: 73630